=== PATIENT | male | born 1935 | race Caucasian/White ===

== ENCOUNTER 2021-06-07 22:09 | Inpatient (IN) | payer MEDICARE, SELFPAY ==
--- NOTE | ~2021-06-07 | CT_ITS ---
EXAMINATION: CT diagnostic chest wo con DATE: 06/12/2021 00:22 INDICATION: Shortness of breath. History of interstitial lung disease. TECHNIQUE: Computed tomography (CT) of the chest was performed without intravenous contrast. The dose -length product was 302.01 mGy-cm. Automated exposure control and iterative reconstruction technique were employed. COMPARISON: Chest x-ray dated 06/11/2021 FINDINGS: There is extensive patchy bilateral airspace disease with groundglass opacification which i s superimposed on chronic interstitial fibrosis with traction bronchiectasis. No endobronchial lesion s. No pneumothorax. There are multiple healed right rib fractures transfixed by side plates and screw s. Cardiomegaly. No significant pleural or pericardial effusion. 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 The upper abdomen is unremarkable. IMPRESSION: 1. Extensive patchy bilateral groundglass opacification, consistent with pneumonia. There is superimp osed chronic interstitial fibrosis characterized by honeycombing, peripheral interlobular septal thic kening and traction bronchiectasis. Reviewed, dictated and finalized at location A. IMPRESSION: 1. Extensive patchy bilateral groundglass opacification, consistent with pneumo reina. There is superimposed chronic interstitial fibrosis characterized by honey combing, peripheral interlobular septal thickening and traction bronchiectasis.
--- NOTE | ~2021-06-07 | XR_ITS ---
EXAMINATION: XR chest 1V portable EXAM DATE: 06/14/2021 16:31 INDICATION: Change In Breathing Low O2 Saturation TECHNIQUE: Portable AP frontal chest x-ray was obtained. Comparison is made to prior examination from 06/11/2021, 06/09. FINDINGS: Diffuse bilateral airspace disease Appearance could indicate COVID 19 pneumonia. Other acu te possibilities include influenza, pulmonary edema or hemorrhage. Some chronic processes that can brenner ve this appearance include cryptogenic organizing pneumonia, desquamative interstitial pneumonia, non specific interstitial pneumonia, drug toxicity, connective tissue disease. Please clinically correlat e and test as appropriate. No pneumothorax or pleural effusion. Mild cardiomegaly. There is aortic ar teriosclerosis. There are bony degenerative changes. Right rib fusion plates. IMPRESSION: Diffuse airspace disease unchanged. Could be COVID pneumonia but other considerations abo ve. Reviewed, dictated and finalized at location G. IMPRESSION: Diffuse airspace disease unchanged. Could be COVID pneumonia but ot her considerations above.
--- NOTE | ~2021-06-07 | XR_ITS ---
EXAMINATION: XR chest 1V portable EXAM DATE: 06/15/2021 17:59 INDICATION: sob, HX COPD, HX CHF, HX PE . TECHNIQUE: Portable AP frontal chest x-ray was obtained. Comparison is made to prior examination from 06/14/2021. FINDINGS: Diffuse bilateral airspace disease unchanged. Appearance could indicate COVID 19 pneumonia. Other acute possibilities include influenza, pulmonary edema or hemorrhage. Some chronic processes t hat can have this appearance include cryptogenic organizing pneumonia, desquamative interstitial pneu monia, nonspecific interstitial pneumonia, drug toxicity, connective tissue disease. Please clinicall y correlate and test as appropriate. No pneumothorax or pleural effusion. Mild cardiomegaly. There is aortic arteriosclerosis. There are bony degenerative changes. Right rib fusion plates. IMPRESSION: Diffuse airspace disease unchanged. Reviewed, dictated and finalized at location G.
--- NOTE | ~2021-06-07 | XR_ITS ---
EXAMINATION: XR chest 1V portable DATE: 06/17/2021 05:22 INDICATION: Chronic lung disease TECHNIQUE: frontal view of the chest was obtained. COMPARISON: Chest radiograph dated 06/09/2021 FINDINGS: Diffuse interstitial and airspace opacities throughout both lungs with some progression in the upper lung zones compared with earlier study dated 06/09/2021. No pleural effusion or pneumothorax. Cardiome jordon. Atherosclerotic aorta. Severe right glenohumeral osteoarthritis. Multiple old right rib fractur es 3 with plain screw fixations. IMPRESSION: 1. Some progression in the upper lung zones of diffuse bilateral lung disease likely combination of c hronic interstitial lung disease with superimposed more acute pulmonary edema and/or pneumonia. 2. Cardiomegaly. Reviewed, dictated and finalized at location A. IMPRESSION: 1. Some progression in the upper lung zones of diffuse bilateral lung disease l ikely combination of chronic interstitial lung disease with superimposed more a cute pulmonary edema and/or pneumonia. 2. Cardiomegaly.
--- NOTE | ~2021-06-07 | XR_ITS ---
XR chest 1V portable 06/09/2021 08:50 Indication: Shortness of breath Procedure: AP portable chest Comparison: No prior studies for comparison. Findings: Cardiomegaly. Diffuse bilateral airspace disease. There are multiple side plates and screws transfixing multiple ribs on the right. There is atherosclerosis and and ectasia of the thoracic aor ta. Impression: 1: Diffuse bilateral airspace disease may represent edema or pneumonia. 2: Cardiomegaly. Reviewed, dictated and finalized at location A. Impression: 1: Diffuse bilateral airspace disease may represent edema or pneumonia. 2: Cardiomegaly.
--- NOTE | ~2021-06-07 | XR_ITS ---
XR chest 1V portable 06/11/2021 12:35 Indication: Shortness of breath Procedure: AP portable chest Comparison: 06/09/2021 Findings: Diffuse bilateral airspace disease. Significant interval change. Stable cardiomediastinal s ilhouette. Stable surgical changes of the right ribs. No acute osseous abnormality. Impression: 1: Stable diffuse bilateral airspace disease which may represent edema or pneumonia. Reviewed, dictated and finalized at location A. Impression: 1: Stable diffuse bilateral airspace disease which may represent edema or pneum onia.
--- NOTE | ~2021-06-07 | CT_ITS ---
EXAMINATION: CTA chest PE protocol DATE: 06/18/2021 08:17 INDICATION: Shortness of breath. TECHNIQUE: Computed tomography angiography (CTA) of the chest was performed with 100 mL Omnipaque-350 intravenous contrast timed to evaluate the pulmonary arteries. Coronal maximum intensity projection 3D-reconstructions were created by the technologist. Automated exposure control and iterative reconst ruction technique were employed. The dose-length product was 819.98 mGy-cm. COMPARISON: Chest CT 06/12/2021, 10/31/2019 FINDINGS: The lung volumes are small. There are airspace and groundglass opacities and septal thicken ing throughout the lungs. Much of the peripheral septal thickening is chronic. There is peripheral ho neycombing in all lobes. There is bronchiectasis in the lungs, worst in right middle lobe. No pleural effusion. Tracheomegaly is noted. Cardiomegaly is noted. There are coronary artery calcifications. N o pericardial effusion. The central pulmonary arteries are enlarged, consistent with pulmonary arteri al hypertension. There is no pulmonary embolus. There is an old healed fracture of right scapula. The re are multiple old right rib fractures, some with [id number] fixation. There are old healed lef t rib fractures. There are multiple chronic vertebral body fractures. There is moderate thoracic spon dylosis. IMPRESSION: 1. No pulmonary embolus. 2. Diffuse lung disease with worsening from 06/12/2021, consistent with pulmonary edema versus pneumon ia superimposed on chronic interstitial lung disease in a pattern of usual interstitial pneumonia (UI P). 3. Cardiomegaly. Reviewed, dictated and finalized at location A. IMPRESSION: 1. No pulmonary embolus. 2. Diffuse lung disease with worsening from 06/12/2021, consistent with pulmonar y edema versus pneumonia superimposed on chronic interstitial lung disease in a pattern of usual interstitial pneumonia (UIP). 3. Cardiomegaly.
--- NOTE | ~2021-06-07 | US_ITS ---
EXAMINATION:US venous doppler LE BI INDICATION:Leg edema TECHNIQUE: Multiple grayscale, color flow and Doppler images of the right and left lower extremity de ep venous systems were obtained and reviewed. COMPARISON:No prior studies for comparison. FINDINGS: The common femoral, superficial femoral and popliteal veins demonstrate normal respiratory variation, augmentation and compressibility. Color flow is also seen within the posterior tibial, pe roneal, greater saphenous and profunda veins. IMPRESSION: 1: No lower extremity deep venous thrombosis. Reviewed, dictated and finalized at location A.
[2021-06-07 20:30] VITALS: BP 124/90; PULSE 96; RESP 20; TEMP 36.3; O2SAT 100
[2021-06-07 20:42] VITALS: PULSE 106
[2021-06-07 20:45] VITALS: O2SAT 100
--- NOTE | 2021-06-07 20:54 | PC.NURSE ---
This patient, Win Bonds, was admitted to IMU Room 203- at 2034. Patient/family oriented to hospital policies and general routines including ID bracelet, bed and alarms, visiting hours, pain management, procedures, bathroom and other care routines, personal items, smoking policy, room service/diet, and visiting hours. Information on how to activate the Rapid Response Team has been discussed. Patient/Family are encouraged to report perceived risks to care and to ask questions if they do not understand what they are told or what they should do.
[2021-06-07 20:57] VITALS: BMI 26.9
[2021-06-07 20:59] VITALS: BMI 26.9
--- NOTE | 2021-06-07 22:15 | PM.IMHP ---
H&P: HPI History of Present Illness Date/Time: 06/07/21 22:00 Chief Complaint: Acute on chronic respiratory failure and pulmonary embolism. Narrative: This is a very pleasant 86-year-old male with atrial fibrillation, chronic interstitial lung disease, obstructive sleep apnea, chronic respiratory failure on 2 L nasal cannula, and hypertension who is being directly admitted to the IMU from [facility] for further treatment and evaluation of acute on chronic respiratory failure and pulmonary embolism. He was usual state of health when he went to bed last night and around 02:30 he got up to use the restroom at which time he felt lightheaded/dizzy and more short of breath than usual. His symptoms continued and after speaking with his daughter he thought it was best to go to the hospital for evaluation. On arrival to the ER his SpO2 was 60% on room air and he was placed on 6 L nasal cannula with improvement. According to the patient he was given a nebulizer treatment which did seem to help somewhat. CT of the chest showed a small filling defect in the right lower lobe likely representing pulmonary embolism and perhaps superimposed edema versus pneumonia on chronic interstitial lung disease and he was subsequently admitted to their medical floor for diuresis and treatment of pulmonary embolism. He was weaned to 4 L nasal cannula however later in the afternoon he had increasing oxygen requirements associated with soft blood pressures (90s over 60s) and rapid atrial fibrillation and transfer was initiated to our facility for higher level of care. Vital signs on arrival to [facility]: Temperature 97.4?, blood pressure 124/90, pulse 96 (atrial fibrillation) and an SpO2 of 100% on 6 L nasal cannula. He is resting comfortably at the time my evaluation but he admits that he is tired. With further questioning he has no history of venous thromboembolism. He is on anticoagulation for atrial fibrillation however he only takes Eliquis 5 mg daily for unclear reasons. He has intermittent lower extremity edema that seems to improve overnight and he has not noticed any significant weight gain. He has an intermittent, chronic cough which is rarely productive of light yellow but occasionally darker sputum and this is also unchanged. Several weeks ago he was having pain in his right mid to lower back but that has improved. He has not had any chest pain or pleuritic pain. Appetite has been good and he denies nausea and vomiting. He has not had any sick contacts. No syncope. Review of Systems Review of Systems: Twelve systems were reviewed. He denies sick contacts. No fever, chills, or sweats. No headache. No sinus congestion, otalgia, odynophagia, or significant rhinorrhea. He denies orthopnea and PND. He is compliant with his CPAP at nighttime. No nausea, vomiting, or diarrhea. No dysuria. Except as documented, all other systems were reviewed and are negative. [facility] Past Medical History Medical History (Updated 06/07/21 @ 23:13 by Tami Perdomo PA-C) Arthritis Atrial fibrillation Chronic anticoagulation Chronic interstitial lung disease Chronic respiratory failure with hypoxia, on home oxygen therapy Congestive heart failure Flail chest (2008) From trauma obtained in a tractor accident. Hypertension Melanoma of face Obstructive sleep apnea Posttraumatic stress disorder Surgical History Surgical History (Updated 06/07/21 @ 23:12 by Tami Perdomo PA-C) History of appendectomy History of bilateral cataract extraction History of cardiac catheterization History of cholecystectomy History of melanoma excision Left side of face. History of thoracic surgery Flail chest due to fractured right anterior ribs obtained in a tractor accident. Family History Family History Father Kidney malignancy Mother Dementia Social History Social History (Updated 06/07/21 @ 23:12 by Tami Newman
[2021-06-07 22:38] LABS: INR 1.2; Prothrombin Time 14.6 Seconds (11.1-14.7)
[2021-06-07 22:39] LABS: Partial Thromboplastin Time 34.4 SECONDS (22.3-36.8)
[2021-06-07 23:11] LABS: Alanine Aminotransferase 18 U/L (4-50); Albumin Level 3.7 g/dL (3.5-5.1); Alkaline Phosphatase 72 U/L (38-126); Anion Gap 5 mmol/L (8-16); Aspartate Amino Transferase 27 U/L (17-59); Bilirubin,Total 0.5 mg/dL (0.2-1.3); Blood Urea Nitrogen 21 mg/dL (9-20); Calcium 8.4 mg/dL (8.4-10.2); Carbon Dioxide 34 mmol/L (22-30); Chloride 99 mmol/L (98-107); Estimated CRCL calculation 49 ml/min; Estimated Glomerular Filt Rate > 60; Glucose 111 mg/dL (65-110); Magnesium 2.2 mg/dL (1.6-2.3); NT Pro B Type Natriuretic Pept 2000 pg/mL (5-100); Potassium 3.9 mmol/L (3.4-5.0); Sodium 138 mmol/L (137-145); Troponin I < 0.012 ng/mL (0.000-0.034)
[2021-06-07] MEDS: APIXABAN 5 MG TABLET 10 MG PO (23:18)
[2021-06-07 23:39] VITALS: BP 124/83; PULSE 105; RESP 20; TEMP 36.6; O2SAT 90
[2021-06-07 23:45] VITALS: PULSE 109; O2SAT 92
[2021-06-08] VITALS (22 sets, daily range): BP systolic 97–134; BP diastolic 54–86; PULSE 82–121; RESP 14–35; TEMP 36.3–36.5; O2SAT 90–100
[2021-06-08 05:04] LABS: Hematocrit 38.9 % (42.0-52.0); Hemoglobin 12.5 g/dL (14.0-18.0); Mean Corpuscular HGB Conc 32.1 g/dl (32-36); Mean Corpuscular Volume 93.3 fl (80-100); Mean Platelet Volume 9.7 fl (7.4-10.4); Platelet Count Result 182 k/mm3 (150-375); Red Blood Count 4.17 M/mm3 (4.6-6.20); Red Cell Distribution Width 13.1 % (11.5-14.5); White Blood Count 8.4 K/mm3 (4.5-10.0)
[2021-06-08 05:20] LABS: Alanine Aminotransferase 18 U/L (4-50); Albumin Level 3.7 g/dL (3.5-5.1); Alkaline Phosphatase 83 U/L (38-126); Anion Gap 5 mmol/L (8-16); Aspartate Amino Transferase 25 U/L (17-59); Bilirubin,Total 0.5 mg/dL (0.2-1.3); Blood Urea Nitrogen 20 mg/dL (9-20); Calcium 8.3 mg/dL (8.4-10.2); Carbon Dioxide 32 mmol/L (22-30); Chloride 101 mmol/L (98-107); Estimated CRCL calculation 54 ml/min; Estimated Glomerular Filt Rate > 60; Glucose 125 mg/dL (65-110); Magnesium 2.2 mg/dL (1.6-2.3); Potassium 3.9 mmol/L (3.4-5.0); Sodium 138 mmol/L (137-145)
[2021-06-08] MEDS: lisinopriL 10 MG TABLET PO (08:03)
[2021-06-08] MEDS: APIXABAN 5 MG TABLET 10 MG PO ×2 (08:03→21:16)
[2021-06-08] MEDS: FUROSEMIDE 20 MG TABLET 60 MG PO (08:03)
[2021-06-08] MEDS: amLODIPine BESYLATE 5 MG TABLET 10 MG PO (08:03)
[2021-06-08] MEDS: PANTOPRAZOLE 40 MG TABLET PO (08:03)
--- NOTE | 2021-06-08 11:36 | PM.IMPN ---
Progress Note: A&P Assessment and Plan (1) Acute and chronic respiratory failure with hypoxia: Code(s): J96.21 - Acute and chronic respiratory failure with hypoxia Status: Acute Assessment and Plan: The patient has acute on chronic respiratory failure, typically on 2 L nasal cannula. Chest CTA showed a small pulmonary embolism in the right lower lobe posterior segmental artery thus I doubt this is the only reason that he has increasing oxygen requirement. received 2 doses of Lasix at the outside facility and his blood pressures were soft earlier this evening thus we will hold on further IV diuretics and resume his oral Lasix in the morning. Nebulizers seemed to help perhaps a bit and thus I will order these p.r.n. if the patient feels he would benefit from them. Wean oxygen as tolerated. (2) Pulmonary embolism on right: Code(s): I26.99 - Other pulmonary embolism without acute cor pulmonale Status: Acute Assessment and Plan: The patient has been taking Eliquis 5 mg once daily for several years. He does well with that drug and is able to afford it thus we will continue with Eliquis. He will be started on 10 mg twice daily and after 7 days he can go back to taking 5 mg though he will need to make sure he takes that twice a day. 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 Nebulizers available as needed as detailed above. I do not feel there is any need for steroids or antibiotics at this time. (4) Obstructive sleep apnea: Code(s): G47.33 - Obstructive sleep apnea (adult) (pediatric) Status: Acute Assessment and Plan: Patient may use CPAP that he brought from home. (5) Congestive heart failure: Code(s): I50.9 - Heart failure, unspecified Status: Acute Assessment and Plan: Plan is as detailed above. Pending echocardiogram (6) Atrial fibrillation: Code(s): I48.91 - Unspecified atrial fibrillation Status: Acute Assessment and Plan: He is currently rate controlled and tells me that he is not chronically in AFib , not on a beta-kayleigh Consult Cardiology, appreciate assistance and recommendations (7) Chronic anticoagulation: Code(s): Z79.01 - group home (current) use of anticoagulants Status: Acute Assessment and Plan: Eliquis dosing has been changed as detailed above. (8) Hypertension: Code(s): I10 - Essential (primary) hypertension Status: Acute Assessment and Plan: Blood pressures were soft at the outside facility after diuresis but have improved. Antihypertensives will be reviewed and resumed as appropriate, with parameters. Subjective Date/time seen: 06/08/21 11:36 Patient is alert and oriented times of 5 L oxygen per nasal cannula satting 93%. Patient wears 2 L of oxygen per nasal cannula. Patient is on Eliquis 5 mg daily for his intermittent AFib however he was never started on a beta-kayleigh. Patient may not be compliant with medications. He was taking Eliquis and developed a pulmonary embolism. There may be a secondary cause. Patient was provided IV Lasix in the emergency department and on the floor. Plan to transition to oral Lasix. Consulted Cardiology for further evaluation of the patient's CHF and AFib. Echocardiogram pending. Patient would benefit from a PFT outpatient. Review of Systems Review of Systems: All systems reviewed & are unremarkable except as noted in HPI and below Exam Narrative: General: Mildly ill-appearing elderly gentleman. Weight: 85 kg. BMI: 26.9. HEENT: PERRL, EOMI. Sclerae anicteric. Oral mucosa moist. Neck: Supple. Mild jugular dina
--- NOTE | 2021-06-08 14:01 | PM.CNCAR ---
Assessment and Plan Assessment and plan (1) Atrial fibrillation: Code(s): I48.91 - Unspecified atrial fibrillation Status: Acute Assessment and Plan: Heart rate is a little fast. Will start metoprolol tartrate 12.5 mg p.o. b.i.d. and up titrate as needed. Will stop his amlodipine and use metoprolol for blood pressure control if need be. Will request records from Dr. Ho office. Agree with anticoagulation as needed for treatment of his pulmonary embolism. Eventually he will need a more proper dose of treatment for atrial fibrillation prophylaxis also which should be 5 mg p.o. b.i.d.. EKG now. PA and lateral chest x-ray tomorrow. 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 (3) Chronic respiratory failure with hypoxia, on home oxygen therapy: Code(s): J96.11 - Chronic respiratory failure with hypoxia; Z99.81 - Dependence on supplemental oxygen Status: Acute Assessment and Plan: Acute on chronic respiratory failure. Acute decompensation possibly from atrial fibrillation with rapid ventricular response versus pulmonary embolism. (4) Obstructive sleep apnea: Code(s): G47.33 - Obstructive sleep apnea (adult) (pediatric) Status: Acute Assessment and Plan: On CPAP (5) Pulmonary embolism on right: Code(s): I26.99 - Other pulmonary embolism without acute cor pulmonale Status: Acute Assessment and Plan: Small (6) Chronic interstitial lung disease: Code(s): J84.9 - Interstitial pulmonary disease, unspecified Status: Acute (7) Acute and chronic respiratory failure with hypoxia: Code(s): J96.21 - Acute and chronic respiratory failure with hypoxia Status: Acute Assessment and Plan: As above Continue oxygen, diuresis and nebulizers. Continue also treatment for his pulmonary embolism. (8) Hypertension: Code(s): I10 - Essential (primary) hypertension Status: Acute Assessment and Plan: At goal in advancing a little low at this point. Will hold amlodipine. History of Present Illness History of Present Illness Consult date/time: 06/08/21 14:01 Requesting physician: Hien Reyes APRN Consult reason: atrial fibrillation Reason For Visit: Pulmonary Embolism Narrative: Reason for consultation: Atrial fibrillation Requesting provider Hien Reyes Date of service 06/08/2021 History: Patient is an 86-year-old male who has see Dr. Morales with [facility] in the past. Reportedly has history of atrial fibrillation, chronic interstitial lung disease, [place], chronic respiratory failure on chronic 2 L of oxygen, hypertension. He woke up and went to the bathroom 2 nights ago and acutely felt lightheaded, dizzy and very short of breath. He went to the hospital and was found to be satting in the 60s on room air. He was put on [address] scan showed a small filling defect consistent with pulmonary embolism. There is also some concern about edema versus pneumonia as well as lung disease. He did have some diuresis. Unfortunately had further oxygen requirement and atrial fibrillation rapid ventricular response. He decompensated to the point that he needed transfer. He could not get him a bed in [place] soon enough and so he was transferred here for further workup evaluation and treatment. He has been started on PE dose Eliquis. He has been in atrial fibrillation when generally in rapid ventricular response since admission but denies any chest pain. Shortness of breath has been stable. No syncope, presyncope. He does have some lower extremity edema which did improve with diuresis over the past couple of days. He does feel palpitations at times especially when he is more active. Review
--- NOTE | 2021-06-08 14:11 | ECG_ITS ---
Measurements Intervals [place] Rate: 103 P: AL: 0 QRS: -29 QRSD: 111 T: -24 QT: 356 QTc: 467 Interpretive Statements ATRIAL FIBRILLATION WITH RAPID VENTRICULAR RESPONSE BORDERLINE LEFT AXIS DEVIATION [QRS AXIS < -20] INCOMPLETE RIGHT BUNDLE BRANCH BLOCK [90+ ms QRS DURATION, TERMINAL R IN V1/V2, 40+ ms S IN I/aVL/V4/V5/V6] POSSIBLE LEFT VENTRICULAR HYPERTROPHY [VOLTAGE CRITERIA PLUS LAE OR QRS WIDENING] ST DEVIATION AND MODERATE T-WAVE ABNORMALITY, CONSIDER ANTERIOR ISCHEMIA [-0.1+ mV T WAVE IN V3/V4] ABNORMAL ECG NO PREVIOUS ECG AVAILABLE FOR COMPARISON Electronically Signed On 06-08-2021 15:25:52 CDT by Kevan Meza M.D.
[2021-06-08] MEDS: METOPROLOL TARTRATE 12.5 MG TABLET PO ×2 (14:58→21:16)
--- NOTE | 2021-06-08 22:57 | ECHO_ITS ---
Patient Info Name: Win Bonds Age: 86 years : 1935 Gender: Male Ht: 70 in Wt: 187 lbs BSA: 2.06 m2 HR: 110 bpm BP: 119 / 96 mmHg Heart Rhythm: Atrial Fibrillation Technical Quality: Good Exam Date: 06/08/2021 8:43 AM Exam Location: [facility] Pulmonary Exam Room: [facility] Patient Status: Inpatient Admit Date: 06/07/2021 Staff Ordering Physician: Tami Perdomo PA-C Steel Rigger: aLcey Castro RDCS Attending Provider: Kareen Bella MD Referring Physician: Conor SEARS; Exam Type: CA echo doppler w bubble study Study Info Indications - afib pulm htn pe Complete two-dimensional, color flow and Doppler transthoracic echocardiogram is performed with agitated saline. Contrast/Agitated Saline Contrast/Ag. Saline: Agitated Saline Amount: 20.00 ml IV Access Condition: patent with no signs of infiltration Summary 1. Left ventricular chamber dimension is normal. 2. Left ventricular systolic function is normal, estimated at 55-60%. 3. There is mildly increased left ventricular wall thickness. 4. The left ventricular diastolic function is indeterminate. 5. Right ventricular chamber dimension is moderately enlarged. 6. Right ventricular systolic function is reduced. 7. Left atrial chamber dimension is moderately enlarged. 8. Right atrial chamber dimension is severely enlarged. 9. Intact interatrial septum visualized by color flow and agitated saline imaging. 10. There is mild aortic valve regurgitation. 11. There is moderate mitral valve regurgitation. 12. There is mild tricuspid valve regurgitation. 13. Mild pulmonary hypertension, estimated pulmonary arterial systolic pressure is 37 mmHg. 14. There is mild pulmonic regurgitation. 15. Pulmonary artery enlargement is seen. Left Ventricle Left ventricular chamber dimension is normal. Left ventricular systolic function is normal, estimated at 55-60%. There is mildly increased left ventricular wall thickness. The left ventricular diastolic function is indeterminate. Right Ventricle Right ventricular chamber dimension is moderately enlarged. Right ventricular systolic function is reduced. Left Atria Left atrial chamber dimension is moderately enlarged. Right Atria Right atrial chamber dimension is severely enlarged. Atrial Septum Intact interatrial septum visualized by color flow and agitated saline imaging. Aortic Valve The aortic valve is trileaflet. There is mild aortic valve sclerosis. There is no aortic valve stenosis. There is mild aortic valve regurgitation. Pulmonic Valve The pulmonic valve is normal. There is no pulmonic valve stenosis. There is mild pulmonic regurgitation. Mitral Valve The mitral valve has normal leaflets. There is no mitral valve stenosis. There is moderate mitral valve regurgitation. Tricuspid Valve The tricuspid valve leaflets are normal. There is no significant tricuspid valve stenosis. There is mild tricuspid valve regurgitation. Mild pulmonary hypertension, estimated pulmonary arterial systolic pressure is 37 mmHg. Pulmonary Arteries Pulmonary artery enlargement is seen. Pericardium/Pleural The pericardium appears normal. There is small pericardial effusion. Inferior Vena Cava Normal inferior vena cava with <50% collapse upon inspiration consistent with elevated right atrial pressure, 10 mmHg. Aorta The aortic root size at the sinus of Valsalva i
[2021-06-09] VITALS (21 sets, daily range): BP systolic 97–135; BP diastolic 60–95; PULSE 79–120; RESP 20–35; TEMP 36.1–36.8; O2SAT 91–98
[2021-06-09 08:18] LABS: Basophils Percent Auto 0.3 % (0.2-1.2); Eosinophils Absolute Auto 0.3 K/mm3 (0-0.3); Eosinophils Percent Auto 2.8 % (0-4.4); Hematocrit 38.8 % (42.0-52.0); Hemoglobin 12.4 g/dL (14.0-18.0); Immature Granulocyte Absolute 0.05 K/mm3 (0.00-0.031); Immature Granulocyte Percent A 0.5 % (0-0.5); Lymphocytes Absolute Auto 1.35 K/mm3 (0.9-3.2); Lymphocytes Percent Auto 14.6 % (18.3-44.2); Mean Corpuscular Hemoglobin 29.9 pg (26-34); Mean Corpuscular Volume 93.5 fl (80-100); Mean Platelet Volume 9.7 fl (7.4-10.4); Monocytes Absolute Auto 0.7 K/mm3 (0.1-0.6); Monocytes Percent Auto 7.6 % (2.6-8.5); Neutrophils Absolute Auto 6.9 K/mm3 (1.3-6.7); Neutrophils Percent Auto 74.2 % (45.5-73.1); Platelet Count Result 174 k/mm3 (150-375); Red Blood Count 4.15 M/mm3 (4.6-6.20); Red Cell Distribution Width 13.2 % (11.5-14.5); White Blood Count 9.2 K/mm3 (4.5-10.0)
[2021-06-09 08:29] LABS: Alanine Aminotransferase 15 U/L (4-50); Albumin Level 3.6 g/dL (3.5-5.1); Alkaline Phosphatase 70 U/L (38-126); Anion Gap 4 mmol/L (8-16); Aspartate Amino Transferase 23 U/L (17-59); Bilirubin,Total 0.9 mg/dL (0.2-1.3); Blood Urea Nitrogen 23 mg/dL (9-20); Calcium 8.2 mg/dL (8.4-10.2); Carbon Dioxide 33 mmol/L (22-30); Chloride 100 mmol/L (98-107); Estimated CRCL calculation 54 ml/min; Estimated Glomerular Filt Rate > 60; Glucose 98 mg/dL (65-110); Magnesium 2.1 mg/dL (1.6-2.3); Sodium 137 mmol/L (137-145)
[2021-06-09] MEDS: FUROSEMIDE 20 MG TABLET 60 MG PO (10:28)
[2021-06-09] MEDS: PANTOPRAZOLE 40 MG TABLET PO (10:29)
[2021-06-09] MEDS: METOPROLOL TARTRATE 12.5 MG TABLET PO ×2 (10:29→20:48)
[2021-06-09] MEDS: APIXABAN 5 MG TABLET 10 MG PO ×2 (10:29→20:48)
--- NOTE | 2021-06-09 11:27 | PM.PNCARD ---
Progress Note: A&P Assessment and Plan (1) Atrial fibrillation: Code(s): I48.91 - Unspecified atrial fibrillation Status: Acute Assessment and Plan: Heart rate is better controlled with low-dose metoprolol. Will continue. Still awaiting records from [facility]. Will request records from Dr. Ho office. Agree with anticoagulation as needed for treatment of his pulmonary embolism. Eventually he will need a more proper dose of treatment for atrial fibrillation prophylaxis also which should be 5 mg p.o. b.i.d.. 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 (3) Chronic respiratory failure with hypoxia, on home oxygen therapy: Code(s): J96.11 - Chronic respiratory failure with hypoxia; Z99.81 - Dependence on supplemental oxygen Status: Acute Assessment and Plan: Acute on chronic respiratory failure. Acute decompensation possibly from atrial fibrillation with rapid ventricular response versus pulmonary embolism. Will give him a dose of IV furosemide 40 mg IV x1 to see if this will help his oxygenation (4) Obstructive sleep apnea: Code(s): G47.33 - Obstructive sleep apnea (adult) (pediatric) Status: Acute Assessment and Plan: On CPAP (5) Pulmonary embolism on right: Code(s): I26.99 - Other pulmonary embolism without acute cor pulmonale Status: Acute Assessment and Plan: Small (6) Chronic interstitial lung disease: Code(s): J84.9 - Interstitial pulmonary disease, unspecified Status: Acute (7) Acute and chronic respiratory failure with hypoxia: Code(s): J96.21 - Acute and chronic respiratory failure with hypoxia Status: Acute Assessment and Plan: As above Continue oxygen, diuresis and nebulizers. Continue also treatment for his pulmonary embolism. (8) Hypertension: Code(s): I10 - Essential (primary) hypertension Status: Acute Assessment and Plan: Stable Subjective Date/time seen: 06/09/21 11:27 Interval history: 86-year-old admitted for worsening shortness of breath and pulmonary embolism. Date of service 06/09/2021: He feels a little bit better but not significantly. Still on high-flow oxygen. No chest pain. No edema Review of Systems Review of Systems: All systems reviewed & are unremarkable except as noted in HPI and below Constitutional: Constitutional: Denies fatigue, Denies headache(s) and Denies weakness Eyes: Eyes: Denies blurry vision ENT: Reports Normal hearing present, Denies headache(s) and Denies neck pain Cardiovascular: Cardiovascular: Denies chest pain, Reports pedal edema and Reports dyspnea Respiratory: Respiratory: Reports dyspnea Gastrointestinal: Gastrointestinal: Denies abdominal pain Genitourinary: Genitourinary: Denies dysuria Musculoskeletal: Musculoskeletal: Denies neck pain Integumentary/Breasts: Skin/Breast: Denies dry skin Neurologic: Reports Normal hearing present, Denies headache(s) and Denies weakness Psychiatric: Psychiatric: Denies anxiety Endocrine: Endocrine: Denies fatigue Hematologic/Lymphatic: Hematologic/Lymphatic: Denies easy bleeding Allergic/Immunologic: Allergic/Immunologic: Denies GI upset with certain foods Exam Narrative: Awake alert. Appears to be in no acute distress. Appears stated age Const: General: comfortable and no acute distress HENMT: General nose exam: Normal nares present Eyes: Sclera: sclerae normal Neck: Neck: supple and no JVD Chest: Other: No reproducible chest wall pain to palpation Resp: Auscultation: diminished lung sounds Cardio: Rate: tachycardic Rhythm: abnormal rhythm irregularly irregular GI: Auscultation: normal bowel sounds Skin: General skin exam: normal color Neuro: Cranial nerves: Yes Normal hearing prese
[2021-06-09] MEDS: FUROSEMIDE INJ 40 MG/4 ML VIAL IV PUSH (12:01)
--- NOTE | 2021-06-09 12:21 | PM.IMPN ---
Progress Note: A&P Assessment and Plan (1) Acute and chronic respiratory failure with hypoxia: Code(s): J96.21 - Acute and chronic respiratory failure with hypoxia Status: Acute Assessment and Plan: The patient has acute on chronic respiratory failure, typically on 2 L nasal cannula, currently on 8 L high-flow nasal cannula Chest CTA showed a small pulmonary embolism in the right lower lobe posterior segmental artery thus I doubt this is the only reason that he has increasing oxygen requirement. Wean oxygen as tolerated (2) Pulmonary embolism on right: Code(s): I26.99 - Other pulmonary embolism without acute cor pulmonale Status: Acute Assessment and Plan: The patient has been taking Eliquis 5 mg once daily for several years. He does well with that drug and is able to afford it thus we will continue with Eliquis. He will be started on 10 mg twice daily and after 7 days he can go back to taking 5 mg though he will need to make sure he takes that twice a day. 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 Nebulizers available as needed as detailed above. I do not feel there is any need for steroids or antibiotics at this time. (4) Obstructive sleep apnea: Code(s): G47.33 - Obstructive sleep apnea (adult) (pediatric) Status: Acute Assessment and Plan: Patient may use CPAP that he brought from home. (5) Congestive heart failure: Code(s): I50.9 - Heart failure, unspecified Status: Acute Assessment and Plan: Consult cardiology for further evaluation, appreciate assistance and recommendations echocardiogram reviewed: LVEF 55-60% with indeterminate diastolic function, right atrial chamber did dimension is severely enlarged and the left atrial chamber dimension is moderately enlarged. Systolic function is reduced. Patient also has elevated pulmonary pressures. Mild pulmonary hypertension Chest x-ray was reviewed. Suggestive of edema versus pneumonia. Due to the patient's lack of leukocytosis and fever, or worsened just pulmonary edema. 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 Patient was noncompliant with his Eliquis prior to admission. Patient was unknowingly taking another medication and not his blood thinner. (8) Hypertension: Code(s): I10 - Essential (primary) hypertension Status: Acute Assessment and Plan: Blood pressures were soft at the outside facility after diuresis but have improved. Antihypertensives will be reviewed and resumed as appropriate, with parameters. Stop amlodipine, continue lisinopril Subjective Date/time seen: 06/09/21 12:21 Patient is alert and oriented x4. Patient is able to answer his questions appropriately. During my evaluation this morning. The patient reported that he had stopped taking his Eliquis at home unknowingly. Medications were mixed up . His daughter found his Eliquis in another area. Therefore the patient has been noncomplian
[2021-06-10] VITALS (21 sets, daily range): BP systolic 92–125; BP diastolic 65–75; PULSE 82–111; RESP 15–32; TEMP 36.6–37.1; O2SAT 91–96
[2021-06-10 06:17] LABS: Basophils Percent Auto 0.3 % (0.2-1.2); Eosinophils Absolute Auto 0.3 K/mm3 (0-0.3); Eosinophils Percent Auto 3.2 % (0-4.4); Immature Granulocyte Absolute 0.04 K/mm3 (0.00-0.031); Immature Granulocyte Percent A 0.4 % (0-0.5); Lymphocytes Absolute Auto 1.47 K/mm3 (0.9-3.2); Mean Corpuscular HGB Conc 32.4 g/dl (32-36); Mean Corpuscular Hemoglobin 29.6 pg (26-34); Mean Corpuscular Volume 91.4 fl (80-100); Mean Platelet Volume 9.4 fl (7.4-10.4); Monocytes Absolute Auto 0.6 K/mm3 (0.1-0.6); Monocytes Percent Auto 6.8 % (2.6-8.5); Neutrophils Absolute Auto 6.7 K/mm3 (1.3-6.7); Neutrophils Percent Auto 73.3 % (45.5-73.1); Platelet Count Result 177 k/mm3 (150-375); Red Blood Count 4.05 M/mm3 (4.6-6.20); Red Cell Distribution Width 12.7 % (11.5-14.5); White Blood Count 9.2 K/mm3 (4.5-10.0)
[2021-06-10 06:27] LABS: Alanine Aminotransferase 17 U/L (4-50); Albumin Level 3.7 g/dL (3.5-5.1); Alkaline Phosphatase 69 U/L (38-126); Anion Gap 5 mmol/L (8-16); Aspartate Amino Transferase 26 U/L (17-59); Bilirubin,Total 1.2 mg/dL (0.2-1.3); Blood Urea Nitrogen 24 mg/dL (9-20); Calcium 8.1 mg/dL (8.4-10.2); Carbon Dioxide 32 mmol/L (22-30); Chloride 100 mmol/L (98-107); Estimated CRCL calculation 54 ml/min; Estimated Glomerular Filt Rate > 60; Glucose 115 mg/dL (65-110); Potassium 3.7 mmol/L (3.4-5.0); Sodium 137 mmol/L (137-145)
[2021-06-10] MEDS: PANTOPRAZOLE 40 MG TABLET PO (08:43)
[2021-06-10] MEDS: APIXABAN 5 MG TABLET 10 MG PO ×2 (08:43→20:40)
[2021-06-10] MEDS: FUROSEMIDE 20 MG TABLET 60 MG PO (08:46)
[2021-06-10] MEDS: METOPROLOL TARTRATE 12.5 MG TABLET PO ×2 (08:46→20:40)
[2021-06-10] MEDS: lisinopriL 10 MG TABLET PO (08:51)
--- NOTE | 2021-06-10 13:59 | PM.PNCARD ---
Progress Note: A&P Assessment and Plan (1) Atrial fibrillation: Code(s): I48.91 - Unspecified atrial fibrillation Status: Acute Assessment and Plan: Heart rate is better controlled with low-dose metoprolol. Continue metoprolol 12.5 mg q.12 hours Agree with anticoagulation as needed for treatment of his pulmonary embolism. Eventually he will need a more proper dose of treatment for atrial fibrillation prophylaxis also which should be 5 mg p.o. b.i.d.. Records have been requested from [facility] (2) Chronic anticoagulation: Code(s): Z79.01 - FPC (current) use of anticoagulants Status: Acute Assessment and Plan: Anticoagulation with Eliquis for treatment of PE at this point. (3) Chronic respiratory failure with hypoxia, on home oxygen therapy: Code(s): J96.11 - Chronic respiratory failure with hypoxia; Z99.81 - Dependence on supplemental oxygen Status: Acute Assessment and Plan: Acute on chronic respiratory failure. Acute decompensation possibly from atrial fibrillation with rapid ventricular response versus pulmonary embolism though from a respiratory standpoint he has not improved with heart rate control. Pulmonary edema vs. pneumonia on CXR yesterday. Will increase diuretic dose to see if this helps improve his respiratory status. (4) Obstructive sleep apnea: Code(s): G47.33 - Obstructive sleep apnea (adult) (pediatric) Status: Acute Assessment and Plan: On CPAP (5) Pulmonary embolism on right: Code(s): I26.99 - Other pulmonary embolism without acute cor pulmonale Status: Acute Assessment and Plan: Small. On apixaban for a/c. (6) Chronic interstitial lung disease: Code(s): J84.9 - Interstitial pulmonary disease, unspecified Status: Acute (7) Acute and chronic respiratory failure with hypoxia: Code(s): J96.21 - Acute and chronic respiratory failure with hypoxia Status: Acute Assessment and Plan: As above Continue oxygen, diuresis and nebulizers. Continue also treatment for his pulmonary embolism. (8) Hypertension: Code(s): I10 - Essential (primary) hypertension Status: Acute Assessment and Plan: Stable Subjective Date/time seen: 06/10/21 13:59 Interval history: 86-year-old admitted for worsening shortness of breath and pulmonary embolism. Date of service 06/09/2021: He feels a little bit better but not significantly. Still on high-flow oxygen. No chest pain. No edema Date of service 06/10/2021: Feeling about the same. He is now on BiPAP. Denies any chest pain, palpitations. Review of Systems Review of Systems: All systems reviewed & are unremarkable except as noted in HPI and below Constitutional: Constitutional: Denies fatigue, Denies headache(s) and Denies weakness Eyes: Eyes: Denies blurry vision ENT: Reports Normal hearing present, Denies headache(s) and Denies neck pain Cardiovascular: Cardiovascular: Denies chest pain, Reports pedal edema and Reports dyspnea Respiratory: Respiratory: Reports dyspnea Gastrointestinal: Gastrointestinal: Denies abdominal pain Genitourinary: Genitourinary: Denies dysuria Musculoskeletal: Musculoskeletal: Denies neck pain Integumentary/Breasts: Skin/Breast: Denies dry skin Neurologic: Reports Normal hearing present, Denies headache(s) and Denies weakness Psychiatric: Psychiatric: Denies anxiety Endocrine: Endocrine: Denies fatigue Hematologic/Lymphatic: Hematologic/Lymphatic: Denies easy bleeding Allergic/Immunologic: Allergic/Immunologic: Denies GI upset with certain foods Exam Narrative: Sleeping but awakens to voice. Appears to be in no acute distress. Appears stated age Const: General: comfortable and no acute distress HENMT: General nose exam: Normal nares present Eyes: Sclera: sclerae normal Neck: Neck: supple and no JVD Chest: Other: No reproducible chest w
--- NOTE | 2021-06-10 15:43 | PM.IMPN ---
Progress Note: A&P Assessment and Plan (1) Acute and chronic respiratory failure with hypoxia: Code(s): J96.21 - Acute and chronic respiratory failure with hypoxia Status: Acute Assessment and Plan: The patient has acute on chronic respiratory failure, typically on 2 L nasal cannula, currently on 8 L high-flow nasal cannula Chest CTA showed a small pulmonary embolism in the right lower lobe posterior segmental artery thus I doubt this is the only reason that he has increasing oxygen requirement. Wean oxygen as tolerated (2) Pulmonary embolism on right: Code(s): I26.99 - Other pulmonary embolism without acute cor pulmonale Status: Acute Assessment and Plan: The patient has been taking Eliquis 5 mg once daily for several years. He does well with that drug and is able to afford it thus we will continue with Eliquis. He will be started on 10 mg twice daily and after 7 days he can go back to taking 5 mg though he will need to make sure he takes that twice a day. 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 Nebulizers available as needed as detailed above. I do not feel there is any need for steroids or antibiotics at this time. (4) Obstructive sleep apnea: Code(s): G47.33 - Obstructive sleep apnea (adult) (pediatric) Status: Acute Assessment and Plan: Patient may use CPAP that he brought from home. (5) Congestive heart failure: Code(s): I50.9 - Heart failure, unspecified Status: Acute Assessment and Plan: Consult cardiology for further evaluation, appreciate assistance and recommendations echocardiogram reviewed: LVEF 55-60% with indeterminate diastolic function, right atrial chamber did dimension is severely enlarged and the left atrial chamber dimension is moderately enlarged. Systolic function is reduced. Patient also has elevated pulmonary pressures. Mild pulmonary hypertension Chest x-ray was reviewed. Suggestive of edema versus pneumonia. Due to the patient's lack of leukocytosis and fever, or worsened just pulmonary edema. 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 Patient was noncompliant with his Eliquis prior to admission. Patient was unknowingly taking another medication and not his blood thinner. (8) Hypertension: Code(s): I10 - Essential (primary) hypertension Status: Acute Assessment and Plan: Blood pressures were soft at the outside facility after diuresis but have improved. Antihypertensives will be reviewed and resumed as appropriate, with parameters. Stop amlodipine, continue lisinopril 06/10/2021 interval history: patient with atrial fibrillation the rate is controlled with metoprolol 12.5 mg b.i.d. and anticoagulated with Eliquis 5 mg b.i.d. as patient was taking once a day prior to coming to emergency depart and developed pulmonary emboli, patient with shortness of breath multifactorial secondary to congestive heart failure patient has a preserved LV fun
[2021-06-11] VITALS (19 sets, daily range): BP systolic 105–136; BP diastolic 65–89; PULSE 86–124; RESP 16–30; TEMP 36.4–36.9; O2SAT 91–98
[2021-06-11] MEDS: ACETAMINOPHEN 325 MG TABLET 650 MG PO (03:33)
[2021-06-11] MEDS: FUROSEMIDE INJ 40 MG/4 ML VIAL IV PUSH ×2 (09:14→17:41)
[2021-06-11] MEDS: lisinopriL 10 MG TABLET PO (09:15)
[2021-06-11] MEDS: PANTOPRAZOLE 40 MG TABLET PO (09:15)
[2021-06-11] MEDS: APIXABAN 5 MG TABLET 10 MG PO ×2 (09:15→20:01)
[2021-06-11] MEDS: METOPROLOL TARTRATE 12.5 MG TABLET PO ×2 (09:15→20:01)
--- NOTE | 2021-06-11 12:16 | PM.IMPN ---
Progress Note: A&P Assessment and Plan (1) Acute and chronic respiratory failure with hypoxia: Code(s): J96.21 - Acute and chronic respiratory failure with hypoxia Status: Acute Assessment and Plan: The patient has acute on chronic respiratory failure, typically on 2 L nasal cannula, currently on 8 L high-flow nasal cannula Chest CTA showed a small pulmonary embolism in the right lower lobe posterior segmental artery associated with pulmonary continue anticoagulation continue diuresis (2) Pulmonary embolism on right: Code(s): I26.99 - Other pulmonary embolism without acute cor pulmonale Status: Acute Assessment and Plan: The patient has been taking Eliquis 5 mg once daily for several years. He does well with that drug and is able to afford it thus we will continue with Eliquis. He will be started on 10 mg twice daily and after 7 days he can go back to taking 5 mg though he will need to make sure he takes that twice a day. 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 Nebulizers available as needed as detailed above. Continue to monitor follow-up with pulmonology as outpatient. (4) Obstructive sleep apnea: Code(s): G47.33 - Obstructive sleep apnea (adult) (pediatric) Status: Acute Assessment and Plan: Patient may use CPAP that he brought from home. (5) Congestive heart failure: Code(s): I50.9 - Heart failure, unspecified Status: Acute Assessment and Plan: Consult cardiology for further evaluation, appreciate assistance and recommendations echocardiogram reviewed: LVEF 55-60% with indeterminate diastolic function, right atrial chamber did dimension is severely enlarged and the left atrial chamber dimension is moderately enlarged. Systolic function is reduced. Patient also has elevated pulmonary pressures. 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 Patient was noncompliant with his Eliquis prior to admission. Patient was unknowingly taking another medication and not his blood thinner. (8) Hypertension: Code(s): I10 - Essential (primary) hypertension Status: Acute Assessment and Plan: Continue current treatment monitor Subjective Date/time seen: 06/11/21 12:16 Interval history: Patient seen and examined Patient was admitted to the hospital with shortness of breath was found to have pulmonary edema and pulmonary embolism Patient feels weak still short of breath requiring oxygen Patient denies fever headache chest pain I am seeing the patient for shortness of breath Exam Narrative: Alert Chest positive bilateral crackles Abdomen nontender nondistended CVS S1 + S2 Lower extremity positive edema Objective Data Vital Signs Vital Signs: Vital Signs - 24 hr 06/10/21 12:30 06/10/21 14:00 06/10/21 16:00 Temperature 97.8 F Pulse Rate 95 101 H Respiratory Rate 24 H Blood Pressure 115/71 Pulse Oximetry 92 94 06/10/21 18:00 06/10/21 20:00 06/10/21 20:40 Temperature 98.0 F Pulse Rate 86 99 96 Respiratory
[2021-06-11 12:42] LABS: Basophils Percent Auto 0.3 % (0.2-1.2); Eosinophils Absolute Auto 0.3 K/mm3 (0-0.3); Eosinophils Percent Auto 3.8 % (0-4.4); Hematocrit 40.6 % (42.0-52.0); Hemoglobin 12.7 g/dL (14.0-18.0); Immature Granulocyte Absolute 0.02 K/mm3 (0.00-0.031); Immature Granulocyte Percent A 0.3 % (0-0.5); Lymphocytes Absolute Auto 1.21 K/mm3 (0.9-3.2); Lymphocytes Percent Auto 17.8 % (18.3-44.2); Mean Corpuscular HGB Conc 31.3 g/dl (32-36); Mean Corpuscular Hemoglobin 29.5 pg (26-34); Mean Corpuscular Volume 94.2 fl (80-100); Mean Platelet Volume 9.5 fl (7.4-10.4); Monocytes Absolute Auto 0.5 K/mm3 (0.1-0.6); Monocytes Percent Auto 7.9 % (2.6-8.5); Neutrophils Absolute Auto 4.8 K/mm3 (1.3-6.7); Neutrophils Percent Auto 69.9 % (45.5-73.1); Platelet Count Result 185 k/mm3 (150-375); Red Blood Count 4.31 M/mm3 (4.6-6.20); Red Cell Distribution Width 12.9 % (11.5-14.5); White Blood Count 6.8 K/mm3 (4.5-10.0)
[2021-06-11 13:10] LABS: Alanine Aminotransferase 22 U/L (4-50); Albumin Level 3.9 g/dL (3.5-5.1); Alkaline Phosphatase 89 U/L (38-126); Anion Gap 5 mmol/L (8-16); Aspartate Amino Transferase 36 U/L (17-59); Bilirubin,Total 0.8 mg/dL (0.2-1.3); Blood Urea Nitrogen 27 mg/dL (9-20); Calcium 8.4 mg/dL (8.4-10.2); Carbon Dioxide 38 mmol/L (22-30); Chloride 98 mmol/L (98-107); Estimated CRCL calculation 54 ml/min; Estimated Glomerular Filt Rate > 60; Glucose 124 mg/dL (65-110); Sodium 141 mmol/L (137-145)
--- NOTE | 2021-06-11 13:37 | PM.PNCARD ---
Progress Note: A&P Assessment and Plan (1) Atrial fibrillation: Code(s): I48.91 - Unspecified atrial fibrillation Status: Acute Assessment and Plan: Heart rate is better controlled with low-dose metoprolol. Continue metoprolol 12.5 mg q.12 hours Agree with anticoagulation as needed for treatment of his pulmonary embolism. Eventually he will need a more proper dose of treatment for atrial fibrillation prophylaxis also which should be 5 mg p.o. b.i.d.. Records have been requested from [facility] (2) Chronic anticoagulation: Code(s): Z79.01 - intermediate (current) use of anticoagulants Status: Acute Assessment and Plan: Anticoagulation with Eliquis for treatment of PE at this point. (3) Chronic respiratory failure with hypoxia, on home oxygen therapy: Code(s): J96.11 - Chronic respiratory failure with hypoxia; Z99.81 - Dependence on supplemental oxygen Status: Acute Assessment and Plan: Acute on chronic respiratory failure. Acute decompensation possibly from atrial fibrillation with rapid ventricular response versus pulmonary embolism though from a respiratory standpoint he has not improved with heart rate control. Pulmonary exam worse today, cxr continues to demonstrate pulmonary edema vs pneumonia, though no other clinical findings to support pneumonia. Will give extra 20mg IV furosemide now. Increase to furosemide 40mg b.i.d daily. (4) Obstructive sleep apnea: Code(s): G47.33 - Obstructive sleep apnea (adult) (pediatric) Status: Acute Assessment and Plan: On CPAP (5) Pulmonary embolism on right: Code(s): I26.99 - Other pulmonary embolism without acute cor pulmonale Status: Acute Assessment and Plan: Small. On apixaban for a/c. (6) Chronic interstitial lung disease: Code(s): J84.9 - Interstitial pulmonary disease, unspecified Status: Acute (7) Acute and chronic respiratory failure with hypoxia: Code(s): J96.21 - Acute and chronic respiratory failure with hypoxia Status: Acute Assessment and Plan: As above Continue oxygen, diuresis and nebulizers. Continue also treatment for his pulmonary embolism. (8) Hypertension: Code(s): I10 - Essential (primary) hypertension Status: Acute Assessment and Plan: Stable Subjective Date/time seen: 06/11/21 13:37 Interval history: 86-year-old admitted for worsening shortness of breath and pulmonary embolism. Date of service 06/09/2021: He feels a little bit better but not significantly. Still on high-flow oxygen. No chest pain. No edema Date of service 06/10/2021: Feeling about the same. He is now on BiPAP. Denies any chest pain, palpitations. Date of service 06/11/2021: Back on high flow O2. States he feels better today, breathing is better but shortness of breath comes and goes. He did experience improvement in his shortness of breath after receiving IV furosemide this morning. Currently, breathing comfortably laying nearly flat. He does endorse SOB with minimal activity. Review of Systems Review of Systems: All systems reviewed & are unremarkable except as noted in HPI and below Constitutional: Constitutional: Denies fatigue, Denies headache(s) and Denies weakness Eyes: Eyes: Denies blurry vision ENT: Reports Normal hearing present, Denies headache(s) and Denies neck pain Cardiovascular: Cardiovascular: Denies chest pain, Reports pedal edema and Reports dyspnea Respiratory: Respiratory: Reports dyspnea Gastrointestinal: Gastrointestinal: Denies abdominal pain Genitourinary: Genitourinary: Denies dysuria Musculoskeletal: Musculoskeletal: Denies neck pain Integumentary/Breasts: Skin/Breast: Denies dry skin Neurologic: Reports Normal hearing present, Denies headache(s) and Denies weakness Psychiatric: Psychiatric: Denies anxiety Endocrine: Endocrine: Denies fatigue Hematologic/Lymphatic:
[2021-06-11 14:06] LABS: NT Pro B Type Natriuretic Pept 1520 pg/mL (5-100)
[2021-06-11] MEDS: FUROSEMIDE INJ 40 MG/4 ML VIAL 20 MG IV PUSH (14:57)
--- NOTE | 2021-06-11 16:29 | PM.CNPUL ---
Assessment and Plan Assessment and plan (1) Chronic interstitial lung disease: Code(s): J84.9 - Interstitial pulmonary disease, unspecified Status: Acute Assessment and Plan: 86-year-old man with a history of chronic hypoxemic respiratory failure on supplemental oxygen, evidence of interstitial lung disease on chest x-rays, small pulmonary embolus on chest CT done at another facility, also in atrial fibrillation, receiving treatment with diuretics for congestive heart failure. On physical exam there is evidence of fine crackles related to his chronic interstitial lung disease. Need to review the recent chest CT he had at [facility]. If the CT images cannot be obtained will repeat the CT without contrast. Further recommendations depending upon the chest CT findings. (2) Pulmonary embolism on right: Code(s): I26.99 - Other pulmonary embolism without acute cor pulmonale Status: Acute (3) Acute and chronic respiratory failure with hypoxia: Code(s): J96.21 - Acute and chronic respiratory failure with hypoxia Status: Acute (4) Obstructive sleep apnea: Code(s): G47.33 - Obstructive sleep apnea (adult) (pediatric) Status: Acute Assessment and Plan: Patient has had obstructive sleep apnea and has been on CPAP. Reportedly he has no issues with CPAP treatment. He reports no daytime somnolence. (5) Congestive heart failure: Code(s): I50.9 - Heart failure, unspecified Status: Acute (6) Atrial fibrillation: Code(s): I48.91 - Unspecified atrial fibrillation Status: Acute History of Present Illness History of Present Illness Consult date: 06/11/21 Chief complaint: Pulmonary Embolism Narrative: this 86-year-old man was transferred to [facility] from [facility] 4 days ago. The patient was in his usual state of health until last Thursday when he started having unsteadiness and lightheadedness. He was evaluated at [facility] and a chest CT showed small filling defect in the right lower lobe likely representing pulmonary embolism; there was also evidence of possible superimposed edema versus pneumonia on chronic interstitial lung disease. The patient has had history of chronic lung disease possibly interstitial lung disease and has been on supplemental oxygen at 2 liters/minute continuously for approximately 18 months. Previous chest CTs are not available for review. 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 He is a never smoker. Has no other exposure history to other organic agents. His chronic symptoms include shortness of breath mild cough which is mostly dry. Since admission to [facility], the patient has been treated for congestive heart failure atrial fibrillation. His oxygen needs have increased from 2 L to minute to 4 liters/minute. His past medical history is also significant for previous flail chest related to a tractor accident, status post ribcage reconstructive surgery with titanium implants. also history of obstructive sleep apnea on CPAP. Review of Systems Review of Systems: All systems reviewed & are unremarkable except as noted in HPI and below PMFSH Past Medical History Medical History Arthritis Atrial fibrillation Chronic anticoagulation Chronic interstitial lung disease Chronic respiratory failure with hypoxia, on home oxygen therapy Congestive heart failure Flail chest (2008) From trauma obtained in a tractor accident. Hypertension Melanoma of face Obstructive sleep apnea Posttraumatic stress disorder Surgical History Surgical History History of appendectomy History of bilateral cataract extraction History of cardiac catheterization History of cholecystectomy History of melanoma excision Left side of face. History of thoracic surgery
[2021-06-12] VITALS (19 sets, daily range): BP systolic 100–132; BP diastolic 63–86; PULSE 83–114; RESP 18–25; TEMP 36.1–36.7; O2SAT 91–98
--- NOTE | 2021-06-12 00:28 | PC.NURSE ---
Patient transported to CT scan and back to 210 via bed with RN
[2021-06-12] MEDS: FUROSEMIDE INJ 40 MG/4 ML VIAL IV PUSH ×2 (08:39→17:27)
[2021-06-12] MEDS: APIXABAN 5 MG TABLET 10 MG PO ×2 (08:39→20:15)
[2021-06-12] MEDS: METOPROLOL TARTRATE 12.5 MG TABLET PO (08:39)
[2021-06-12] MEDS: PANTOPRAZOLE 40 MG TABLET PO (08:39)
--- NOTE | 2021-06-12 11:12 | PM.PNPUL ---
Progress Note: A&P Additional Plan Assessment and plan (1) Chronic interstitial lung disease: Code(s): J84.9 - Interstitial pulmonary disease, unspecified Status: Acute Assessment and Plan: 86-year-old man with a history of chronic hypoxemic respiratory failure on supplemental oxygen, evidence of interstitial lung disease on chest x-rays, small pulmonary embolus on chest CT done at another facility, also in atrial fibrillation, receiving treatment with diuretics for congestive heart failure. On physical exam there is evidence of fine crackles related to his chronic interstitial lung disease. Chest CT done yesterday showed extensive fibrotic changes bilaterally and superimposed ground-glass infiltrates primarily in the upper lobes. 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 Regarding superimposed ground-glass opacities in the upper lobes these could be related to CHF rather than to a pneumonia. I would discontinue antibiotics and IV steroids. The patient resides far away from [facility] and would like to have follow-up for his respiratory problems near his home. continue with current treatment for pulmonary embolism congestive heart failure, atrial fibrillation. Will reassess oxygen needs prior to discharging home. the case was discussed with the hospitalist. (2) Pulmonary embolism on right: Code(s): I26.99 - Other pulmonary embolism without acute cor pulmonale Status: Acute (3) Acute and chronic respiratory failure with hypoxia: Code(s): J96.21 - Acute and chronic respiratory failure with hypoxia Status: Acute (4) Obstructive sleep apnea: Code(s): G47.33 - Obstructive sleep apnea (adult) (pediatric) Status: Acute Assessment and Plan: Patient has had obstructive sleep apnea and has been on CPAP. Reportedly he has no issues with CPAP treatment. He reports no daytime somnolence. (5) Congestive heart failure: Code(s): I50.9 - Heart failure, unspecified Status: Acute (6) Atrial fibrillation: Code(s): I48.91 - Unspecified atrial fibrillation Status: Acute Subjective Date/time seen: 06/12/21 11:12 Patient remaining on high oxygen flow. He has no new respiratory symptoms. He has no fever chills cough or wheezing. He has been treated for pulmonary embolism , recurrent atrial fibrillation and congestive heart failure. He underwent chest CT last night. Review of Systems Review of Systems: All systems reviewed & are unremarkable except as noted in HPI and below Exam Narrative: GENERAL APPEARANCE: Well developed, well nourished, alert and cooperative, who appears to be in mild respiratory distress while receiving oxygen via nasal cannula SKIN: Inspection of the skin reveals no rashes, ulcerations or petechiae. HEENT: Sclerae anicteric and conjunctivae pink and moist. The oral mucosa, hard and soft palate, tongue and posterior pharynx were normal. NECK: Supple. There was no thyroid enlargement, and no tenderness, or masses were felt. CHEST: Normal AP diameter and normal contour without any kyphoscoliosis. LUNGS: Auscultation of the lungs revealed diffuse crackles posteriorly no wheezing CARDIAC: There was a irregular rate and rhythm without any murmurs. ABDOMEN: Soft and nontender with normal bowel sounds. There was no organomegaly. LYMPH NODES: No lymphadenopathy was appreciated in the neck. EXTREMITIES: No cyanosis, clubbing or edema. NEUROLOGIC: Alert and oriented x 3. Normal affect. Objective Data Vital Signs Vital Signs: Vital Signs - 24 hr 06/11/21 12:00 06/11/21 14:00 06/11/21 16:00 Temperature 36.4 C 36.6 C Pulse Rate 101 H 96 103 H Respiratory Rate 18 20 Blood Pressure 113/74 131/78 Pulse Oximetry 94 91 06/11/21 18:00 06/11/21 19:27 06/11/21 19:48 Temperature 36.5 C Puls
--- NOTE | 2021-06-12 11:18 | PM.PNCARD ---
Progress Note: A&P Assessment and Plan (1) Atrial fibrillation: Code(s): I48.91 - Unspecified atrial fibrillation Status: Acute Assessment and Plan: Heart rate is better controlled with low-dose metoprolol. Will increase metoprolol 25 mg p.o. b.i.d. Agree with anticoagulation as needed for treatment of his pulmonary embolism. Eventually he will need a more proper dose of treatment for atrial fibrillation prophylaxis also which should be 5 mg p.o. b.i.d.. 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 (3) Chronic respiratory failure with hypoxia, on home oxygen therapy: Code(s): J96.11 - Chronic respiratory failure with hypoxia; Z99.81 - Dependence on supplemental oxygen Status: Acute Assessment and Plan: Acute on chronic respiratory failure. Acute decompensation possibly from atrial fibrillation with rapid ventricular response versus pulmonary embolism though from a respiratory standpoint he has not improved with heart rate control. Agree with IV diuretics (4) Obstructive sleep apnea: Code(s): G47.33 - Obstructive sleep apnea (adult) (pediatric) Status: Acute Assessment and Plan: On CPAP (5) Pulmonary embolism on right: Code(s): I26.99 - Other pulmonary embolism without acute cor pulmonale Status: Acute Assessment and Plan: Small. On apixaban for a/c. (6) Chronic interstitial lung disease: Code(s): J84.9 - Interstitial pulmonary disease, unspecified Status: Acute (7) Acute and chronic respiratory failure with hypoxia: Code(s): J96.21 - Acute and chronic respiratory failure with hypoxia Status: Acute Assessment and Plan: As above Continue oxygen, diuresis and nebulizers. Continue also treatment for his pulmonary embolism. (8) Hypertension: Code(s): I10 - Essential (primary) hypertension Status: Acute Assessment and Plan: Stable Subjective Date/time seen: 06/12/21 11:18 Interval history: 86-year-old admitted for worsening shortness of breath and pulmonary embolism. Date of service 06/09/2021: He feels a little bit better but not significantly. Still on high-flow oxygen. No chest pain. No edema Date of service 06/10/2021: Feeling about the same. He is now on BiPAP. Denies any chest pain, palpitations. Date of service 06/11/2021: Back on high flow O2. States he feels better today, breathing is better but shortness of breath comes and goes. He did experience improvement in his shortness of breath after receiving IV furosemide this morning. Currently, breathing comfortably laying nearly flat. He does endorse SOB with minimal activity. Date of service 06/12/2021: Still on high-flow oxygen. Still short of breath at times. Still on IV diuretics. No chest pain Review of Systems Review of Systems: All systems reviewed & are unremarkable except as noted in HPI and below Constitutional: Constitutional: Denies fatigue, Denies headache(s) and Denies weakness Eyes: Eyes: Denies blurry vision ENT: Reports Normal hearing present, Denies headache(s) and Denies neck pain Cardiovascular: Cardiovascular: Denies chest pain, Reports pedal edema and Reports dyspnea Respiratory: Respiratory: Reports dyspnea Gastrointestinal: Gastrointestinal: Denies abdominal pain Genitourinary: Genitourinary: Denies dysuria Musculoskeletal: Musculoskeletal: Denies neck pain Integumentary/Breasts: Skin/Breast: Denies dry skin Neurologic: Reports Normal hearing present, Denies headache(s) and Denies weakness Psychiatric: Psychiatric: Denies anxiety Endocrine: Endocrine: Denies fatigue Hematologic/Lymphatic: Hematologic/Lymphatic: Denies easy bleeding Allergic/Immunologic:
[2021-06-12 13:15] LABS: Basophils Percent Auto 0.4 % (0.2-1.2); Eosinophils Absolute Auto 0.2 K/mm3 (0-0.3); Hematocrit 41.2 % (42.0-52.0); Hemoglobin 13.5 g/dL (14.0-18.0); Immature Granulocyte Absolute 0.04 K/mm3 (0.00-0.031); Immature Granulocyte Percent A 0.5 % (0-0.5); Lymphocytes Absolute Auto 1.24 K/mm3 (0.9-3.2); Lymphocytes Percent Auto 14.9 % (18.3-44.2); Mean Corpuscular HGB Conc 32.8 g/dl (32-36); Mean Corpuscular Hemoglobin 30.1 pg (26-34); Mean Corpuscular Volume 91.8 fl (80-100); Mean Platelet Volume 9.6 fl (7.4-10.4); Monocytes Absolute Auto 0.6 K/mm3 (0.1-0.6); Monocytes Percent Auto 7.3 % (2.6-8.5); Neutrophils Absolute Auto 6.2 K/mm3 (1.3-6.7); Neutrophils Percent Auto 74.9 % (45.5-73.1); Platelet Count Result 208 k/mm3 (150-375); Red Blood Count 4.49 M/mm3 (4.6-6.20); Red Cell Distribution Width 12.8 % (11.5-14.5); White Blood Count 8.3 K/mm3 (4.5-10.0)
[2021-06-12 13:30] LABS: Alanine Aminotransferase 26 U/L (4-50); Albumin Level 4.1 g/dL (3.5-5.1); Alkaline Phosphatase 80 U/L (38-126); Anion Gap 5 mmol/L (8-16); Aspartate Amino Transferase 37 U/L (17-59); Bilirubin,Total 1.2 mg/dL (0.2-1.3); Blood Urea Nitrogen 25 mg/dL (9-20); Calcium 8.6 mg/dL (8.4-10.2); Carbon Dioxide 39 mmol/L (22-30); Chloride 95 mmol/L (98-107); Estimated CRCL calculation 54 ml/min; Estimated Glomerular Filt Rate > 60; Glucose 124 mg/dL (65-110); Sodium 139 mmol/L (137-145)
--- NOTE | 2021-06-12 16:11 | PM.IMPN ---
Progress Note: A&P Additional Plan 86-year-old male with atrial fibrillation, chronic interstitial lung disease, obstructive sleep apnea, chronic respiratory failure on 2 L nasal cannula, and hypertension who was being directly admitted to the IMU from [facility] for evaluation of acute on chronic respiratory failure and pulmonary embolism. 1)Acute on Chronic Resp Failure: 2/2 Chronic interstitial Lung disease+Pulmonary embolism+?Diastolic HF C/w O2 support Appreciate cardiology and pulmonary help C/w IV diuresis c/w BB c/w Bronchodilators c/w Eliquis 2)DVT ppx: Eliquis 3)Code:DNR,poor long term care phlebotomist prognosis 4)Dispo:pending improvement Time Spent With Patient Time with patient: 15 - 25 minutes Subjective Date/time seen: 06/12/21 16:11 no major change clinically, remains on nasal canula Review of Systems Review of Systems: All systems reviewed & are unremarkable except as noted in HPI and below Constitutional: Constitutional: Reports fatigue and Reports lethargy Eyes: Eyes: Reports no additional eye complaints ENT: Reports system reviewed and no additional complaints, except as documented Cardiovascular: Cardiovascular: Reports no additional cardiovascular complaints Respiratory: Respiratory: Reports cough and Reports dyspnea on exertion Gastrointestinal: Gastrointestinal: Reports no additional gastrointestinal complaints Musculoskeletal: Musculoskeletal: Reports no additional musculoskeletal complaints Psychiatric: Psychiatric: Reports no additional psychiatric complaints Exam Const: General: no acute distress Other: on nasal canula HENMT: Mouth: Yes moist mucous membranes Eyes: Sclera: sclerae normal Pupils: Equal, round and reactive pupils present Neck: Neck: supple Resp: Other: decreased breath sounds B/l, no wheezing heard Cardio: Rate: regular rate Rhythm: regular rhythm GI: GI Palp: Yes Soft to palpation Auscultation: normal bowel sounds Skin: General skin exam: normal color Neuro: Cognition (Neuro): normal cognition Psych: Mental Status: mental status grossly normal Objective Data Vital Signs Vital Signs: Vital Signs - 24 hr 06/11/21 18:00 06/11/21 19:27 06/11/21 19:48 Temperature 97.7 F Pulse Rate 105 H 102 H 105 H Respiratory Rate 20 Blood Pressure 125/89 Pulse Oximetry 93 93 06/11/21 19:54 06/11/21 20:00 06/11/21 20:01 Temperature Pulse Rate 100 108 H 106 H Respiratory Rate 30 H Blood Pressure Pulse Oximetry 95 94 06/11/21 22:00 03/22/22 23:35 06/11/21 23:46 Temperature 97.6 F Pulse Rate 88 98 Respiratory Rate 20 Blood Pressure 108/72 Pulse Oximetry 93 94 06/12/21 00:00 06/12/21 00:06 06/12/21 02:00 Temperature Pulse Rate 98 91 99 Respiratory Rate Blood Pressure Pulse Oximetry 93 06/12/21 02:09 06/12/21 04:00 06/12/21 04:18 Temperature 98.0 F Pulse Rate 83 101 H 114 H Respiratory Rate 20 20 Blood Pressure 118/86 Pulse Oximetry 91 98 94 06/12/21 05:59 06/12/21 08:00 06/12/21 08:39 Temperature 97.3 F L Pulse Rate 100 91 99 Respiratory Rate 18 Blood Pressure 124/84 Pulse Oximetry 92 06/12/21 10:00 06/12/21 12:00 06/12/21 14:00 Temperature 97.8 F Pulse Rate 93 89 92 Respiratory Rate 22 H Blood Pressure 112/73 Pulse Oximetry 93 Intake/Output Intake/Output: Intake & Output 06/09/21 06/10/21 06/11/21 06/12/21 23:59 23:59 23:59 23:59 Intake Total 720 1130 1620 960 Output Total 4633 [id number] 497 [facility]1819 [phone] Meds/Results Medications: Active Medications Generic Name Dose Route Start Last Admin Trade Name Freq PRN Reason Stop Dose Admin Acetaminophen 650 mg 06/07/21 22:09 06/11/21 03:33 Acetaminophen 325 Mg Tablet PO 650 mg Q4H PRN Administration Mild Pain (1-3) or Fever Albuterol 2.5 mg 06/07/21 23:21 Albuterol Sulfate Neb 2.5 Mg/0.5 Ml Inh INHALATION Q6HRT PRN Shortness Of Breath Or Whe
[2021-06-12] MEDS: METOPROLOL TARTRATE 25 MG TABLET PO (20:14)
[2021-06-13] VITALS (18 sets, daily range): BP systolic 90–119; BP diastolic 54–79; PULSE 65–112; RESP 18–29; TEMP 36.3–37.2; O2SAT 91–97
[2021-06-13 07:52] LABS: Basophils Percent Auto 0.4 % (0.2-1.2); Eosinophils Absolute Auto 0.2 K/mm3 (0-0.3); Eosinophils Percent Auto 2.9 % (0-4.4); Hematocrit 37.6 % (42.0-52.0); Hemoglobin 12.1 g/dL (14.0-18.0); Immature Granulocyte Absolute 0.04 K/mm3 (0.00-0.031); Immature Granulocyte Percent A 0.5 % (0-0.5); Lymphocytes Absolute Auto 1.47 K/mm3 (0.9-3.2); Lymphocytes Percent Auto 18.8 % (18.3-44.2); Mean Corpuscular HGB Conc 32.2 g/dl (32-36); Mean Corpuscular Hemoglobin 29.8 pg (26-34); Mean Corpuscular Volume 92.6 fl (80-100); Mean Platelet Volume 9.5 fl (7.4-10.4); Monocytes Absolute Auto 0.6 K/mm3 (0.1-0.6); Monocytes Percent Auto 7.9 % (2.6-8.5); Neutrophils Absolute Auto 5.4 K/mm3 (1.3-6.7); Neutrophils Percent Auto 69.5 % (45.5-73.1); Platelet Count Result 190 k/mm3 (150-375); Red Blood Count 4.06 M/mm3 (4.6-6.20); Red Cell Distribution Width 12.7 % (11.5-14.5); White Blood Count 7.8 K/mm3 (4.5-10.0)
[2021-06-13 07:58] LABS: Alanine Aminotransferase 22 U/L (4-50); Albumin Level 3.6 g/dL (3.5-5.1); Alkaline Phosphatase 72 U/L (38-126); Aspartate Amino Transferase 30 U/L (17-59); Blood Urea Nitrogen 23 mg/dL (9-20); Calcium 8.3 mg/dL (8.4-10.2); Carbon Dioxide > 40 mmol/L (22-30); Chloride 96 mmol/L (98-107); Estimated CRCL calculation 54 ml/min; Estimated Glomerular Filt Rate > 60; Glucose 89 mg/dL (65-110); Potassium 4.1 mmol/L (3.4-5.0); Sodium 137 mmol/L (137-145)
[2021-06-13] MEDS: PANTOPRAZOLE 40 MG TABLET PO (08:46)
[2021-06-13] MEDS: FUROSEMIDE INJ 40 MG/4 ML VIAL IV PUSH ×2 (08:46→17:02)
[2021-06-13] MEDS: APIXABAN 5 MG TABLET 10 MG PO ×2 (08:46→20:11)
[2021-06-13] MEDS: METOPROLOL TARTRATE 25 MG TABLET PO ×2 (08:46→20:11)
--- NOTE | 2021-06-13 10:25 | PM.PNCARD ---
Progress Note: A&P Assessment and Plan (1) Atrial fibrillation: Code(s): I48.91 - Unspecified atrial fibrillation Status: Acute Assessment and Plan: He did convert back to sinus rhythm with low-dose metoprolol. Continue metoprolol. Agree with anticoagulation as needed for treatment of his pulmonary embolism. Eventually he will need a more proper dose of treatment for atrial fibrillation prophylaxis also which should be 5 mg p.o. b.i.d.. 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 (3) Chronic respiratory failure with hypoxia, on home oxygen therapy: Code(s): J96.11 - Chronic respiratory failure with hypoxia; Z99.81 - Dependence on supplemental oxygen Status: Acute Assessment and Plan: Acute on chronic respiratory failure. Acute decompensation possibly from atrial fibrillation with rapid ventricular response versus pulmonary embolism though from a respiratory standpoint he has not improved with heart rate control. Agree with IV diuretics (4) Obstructive sleep apnea: Code(s): G47.33 - Obstructive sleep apnea (adult) (pediatric) Status: Acute Assessment and Plan: On CPAP (5) Pulmonary embolism on right: Code(s): I26.99 - Other pulmonary embolism without acute cor pulmonale Status: Acute Assessment and Plan: Small. On apixaban for a/c. (6) Chronic interstitial lung disease: Code(s): J84.9 - Interstitial pulmonary disease, unspecified Status: Acute (7) Acute and chronic respiratory failure with hypoxia: Code(s): J96.21 - Acute and chronic respiratory failure with hypoxia Status: Acute Assessment and Plan: As above Continue oxygen, diuresis and nebulizers. Continue also treatment for his pulmonary embolism. (8) Hypertension: Code(s): I10 - Essential (primary) hypertension Status: Acute Assessment and Plan: Stable Subjective Date/time seen: 06/13/21 10:25 Interval history: 86-year-old admitted for worsening shortness of breath and pulmonary embolism. Date of service 06/09/2021: He feels a little bit better but not significantly. Still on high-flow oxygen. No chest pain. No edema Date of service 06/10/2021: Feeling about the same. He is now on BiPAP. Denies any chest pain, palpitations. Date of service 06/11/2021: Back on high flow O2. States he feels better today, breathing is better but shortness of breath comes and goes. He did experience improvement in his shortness of breath after receiving IV furosemide this morning. Currently, breathing comfortably laying nearly flat. He does endorse SOB with minimal activity. Date of service 06/12/2021: Still on high-flow oxygen. Still short of breath at times. Still on IV diuretics. No chest pain Date of service 06/13/2021: Oxygen dependence has gone down slightly. He has reverted back to sinus rhythm. Not in chest pain. Still short of breath especially with doing things as simple as talking Review of Systems Review of Systems: All systems reviewed & are unremarkable except as noted in HPI and below Constitutional: Constitutional: Denies fatigue, Denies headache(s) and Denies weakness Eyes: Eyes: Denies blurry vision ENT: Reports Normal hearing present, Denies headache(s) and Denies neck pain Cardiovascular: Cardiovascular: Denies chest pain, Reports pedal edema and Reports dyspnea Respiratory: Respiratory: Reports dyspnea Gastrointestinal: Gastrointestinal: Denies abdominal pain Genitourinary: Genitourinary: Denies dysuria Musculoskeletal: Musculoskeletal: Denies neck pain Integumentary/Breasts: Skin/Breast: Denies dry skin Neurologic: Reports Normal hearing present, Denies headache(s) and [place]
--- NOTE | 2021-06-13 14:31 | PM.IMPN ---
Progress Note: A&P Assessment and Plan (1) Acute and chronic respiratory failure with hypoxia: Code(s): J96.21 - Acute and chronic respiratory failure with hypoxia Status: Acute Assessment and Plan: The patient has acute on chronic respiratory failure, typically on 2 L nasal cannula, currently on 8 L high-flow nasal cannula Chest CTA showed a small pulmonary embolism in the right lower lobe posterior segmental artery associated with pulmonary continue anticoagulation continue diuresis The chest reviewed pulmonary was consulted IV antibiotics is stopped now along with IV steroids as well (2) Pulmonary embolism on right: Code(s): I26.99 - Other pulmonary embolism without acute cor pulmonale Status: Acute Assessment and Plan: The patient has been taking Eliquis 5 mg once daily for several years. He does well with that drug and is able to afford it thus we will continue with Eliquis. He will be started on 10 mg twice daily and after 7 days he can go back to taking 5 mg though he will need to make sure he takes that twice a day. 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 Nebulizers available as needed as detailed above. Continue to monitor follow-up with pulmonology as outpatient. (4) Obstructive sleep apnea: Code(s): G47.33 - Obstructive sleep apnea (adult) (pediatric) Status: Acute Assessment and Plan: Patient may use CPAP that he brought from home. (5) Congestive heart failure: Code(s): I50.9 - Heart failure, unspecified Status: Acute Assessment and Plan: Consult cardiology for further evaluation, appreciate assistance and recommendations echocardiogram reviewed: LVEF 55-60% with indeterminate diastolic function, right atrial chamber did dimension is severely enlarged and the left atrial chamber dimension is moderately enlarged. Systolic function is reduced. Patient also has elevated pulmonary pressures. Mild pulmonary hypertension Associated with pulmonary edema continue IV diuresis (6) Atrial fibrillation: Code(s): I48.91 - Unspecified atrial fibrillation Status: Acute Assessment and Plan: He is currently rate controlled and tells me that he is not chronically in AFib , not on a beta-kayleigh Patient was initiated on metoprolol tartrate b.i.d., continue with lisinopril and discontinue amlodipine Follow cardiology recommendation, appreciate assistance and recommendations Converted back to sinus rhythm (7) Chronic anticoagulation: Code(s): Z79.01 - superintendent terminal (current) use of anticoagulants Status: Acute Assessment and Plan: Eliquis dosing has been changed as detailed above. Patient was noncompliant with his Eliquis prior to admission. Patient was unknowingly taking another medication and not his blood thinner. (8) Hypertension: Code(s): I10 - Essential (primary) hypertension Status: Acute Assessment and Plan: Continue current treatment monitor Additional Plan Code status: DNR Subjective Date/time seen: 06/13/21 14:31 Interval history: Patient seen and examined Patient was admitted to the hospital with shortness of breath was found to have pulmonary edema and pulmonary embolism 06/13/2021 denies any new complaints. Converted to sinus rhythm overnight. Short of breath on exertion. Denies any chest pain cough or fever. Leg swelling is getting better. Review of Systems Review of Systems: All systems reviewed & are unremarkable except as noted in HPI and below Exam Narrative: Const: General: no acute distress Other: on nasal canula HENMT: Mouth: Yes moist mucous membranes Eyes: Sclera: sclerae normal Pupils:
--- NOTE | 2021-06-13 18:19 | PC.NURSE ---
This patient, Win Bonds, was transferred to [[id number] ] on 06/13/21 at 1819. Personal belongings sent with patient. Report given to [ FLO Wise @ 2515]. Appropriate documentation sent with patient. Transfer delayed d/t patient eating dinner prior to moving.
[2021-06-14] VITALS (18 sets, daily range): BP systolic 110–123; BP diastolic 59–69; PULSE 45–104; RESP 14–30; TEMP 36.6–37.1; O2SAT 88–95
[2021-06-14 06:14] LABS: Magnesium 2.3 mg/dL (1.6-2.3)
--- NOTE | 2021-06-14 08:31 | PM.PNPUL ---
Progress Note: A&P Additional Plan Assessment and plan (1) Chronic interstitial lung disease: Code(s): J84.9 - Interstitial pulmonary disease, unspecified Status: Acute Assessment and Plan: 86-year-old man with a history of chronic hypoxemic respiratory failure on supplemental oxygen, evidence of interstitial lung disease on chest x-rays, small pulmonary embolus on chest CT done at another facility, also in atrial fibrillation, receiving treatment with diuretics for congestive heart failure. On physical exam there is evidence of fine crackles related to his chronic interstitial lung disease. Chest CT showed extensive fibrotic changes bilaterally and superimposed ground-glass infiltrates primarily in the upper lobes. 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 On further review the superimposed ground-glass infiltrates are most likely fibrotic changes, not related to CHF or pneumonia. Prior to this admission, the patient was using oxygen at 2 liters/minute continuously which was probably inadequate given, the extensive fibrotic changes on chest CT and the highly likely pulmonary hypertension. I anticipate the patient will require higher oxygen flow than the one he was previously on. Patient will need pulmonary function testing as an outpatient. Depending upon the pulmonary function testing, the patient may or may not qualify for antifibrotic treatment. 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 will consider apnea link on patient's own CPAP and hopefully lower, less than 5L/min O2 flow, prior to D/C home. The patient will not be coming to our outpatient pulmonary clinic as he lives far away from [place]. (2) Pulmonary embolism on right: Code(s): I26.99 - Other pulmonary embolism without acute cor pulmonale Status: Acute (3) Acute and chronic respiratory failure with hypoxia: Code(s): J96.21 - Acute and chronic respiratory failure with hypoxia Status: Acute (4) Obstructive sleep apnea: Code(s): G47.33 - Obstructive sleep apnea (adult) (pediatric) Status: Acute Assessment and Plan: Patient has had obstructive sleep apnea and has been on CPAP. Reportedly he has no issues with CPAP treatment. He reports no daytime somnolence. (5) Congestive heart failure: Code(s): I50.9 - Heart failure, unspecified Status: Acute (6) Atrial fibrillation: Code(s): I48.91 - Unspecified atrial fibrillation Status: Acute Subjective Date/time seen: 06/14/21 08:31 Patient has had no new respiratory symptoms. Currently on 8 liters/minute supplemental oxygen. Ambulating using a walker in room. Receiving BiPAP support at night at 60% FiO2. Brought his own CPAP machine but not using it. Review of Systems Review of Systems: All systems reviewed & are unremarkable except as noted in HPI and below Exam Narrative: GENERAL APPEARANCE: Well developed, well nourished, alert and cooperative, who appears to be in mild respiratory distress while receiving oxygen via nasal cannula SKIN: Inspection of the skin reveals no rashes, ulcerations or petechiae. HEENT: Sclerae anicteric and conjunctivae pink and moist. The oral mucosa, hard and soft palate, tongue and posterior pharynx were normal. NECK: Supple. There was no thyroid enlargement, and no tenderness, or masses were felt. CHEST: Normal AP diameter and normal contour without any kyphoscoliosis. LUNGS: Auscultation of the lungs revealed diffuse crackles posteriorly no wheezing CARDIAC: There was a irregular rate and rhythm without any murmurs. ABDOMEN: Soft and nontender with normal bowel sounds. There was no organomegaly. LYMPH NODES: No lymphadenopathy was appreciated in the neck. EXTREMITIES: No cyanosis,
--- NOTE | 2021-06-14 08:37 | PCNWS ---
Weekly nutritional screen. Patient is tolerating current diet with adequate intake. No nutritional needs at this time.
[2021-06-14] MEDS: PANTOPRAZOLE 40 MG TABLET PO (08:58)
[2021-06-14] MEDS: METOPROLOL TARTRATE 25 MG TABLET PO ×2 (08:58→16:37)
[2021-06-14] MEDS: APIXABAN 5 MG TABLET 10 MG PO ×2 (09:00→20:29)
[2021-06-14] MEDS: FUROSEMIDE INJ 40 MG/4 ML VIAL IV PUSH (09:00)
--- NOTE | 2021-06-14 09:50 | PM.PNCARD ---
Progress Note: A&P Assessment and Plan (1) Atrial fibrillation: Code(s): I48.91 - Unspecified atrial fibrillation Status: Acute Assessment and Plan: He did convert back to sinus rhythm with low-dose metoprolol. Continue metoprolol. Agree with anticoagulation as needed for treatment of his pulmonary embolism. Eventually he will need a more proper dose of treatment for atrial fibrillation prophylaxis also which should be 5 mg p.o. b.i.d.. 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 (3) Chronic respiratory failure with hypoxia, on home oxygen therapy: Code(s): J96.11 - Chronic respiratory failure with hypoxia; Z99.81 - Dependence on supplemental oxygen Status: Acute Assessment and Plan: Acute on chronic respiratory failure. Acute decompensation possibly from atrial fibrillation with rapid ventricular response versus pulmonary embolism though from a respiratory standpoint he has not improved with heart rate control. Will shift him back to p.o. furosemide today. (4) Obstructive sleep apnea: Code(s): G47.33 - Obstructive sleep apnea (adult) (pediatric) Status: Acute Assessment and Plan: On CPAP (5) Pulmonary embolism on right: Code(s): I26.99 - Other pulmonary embolism without acute cor pulmonale Status: Acute Assessment and Plan: Small. On apixaban for a/c. (6) Chronic interstitial lung disease: Code(s): J84.9 - Interstitial pulmonary disease, unspecified Status: Acute (7) Acute and chronic respiratory failure with hypoxia: Code(s): J96.21 - Acute and chronic respiratory failure with hypoxia Status: Acute Assessment and Plan: As above Continue oxygen, diuresis and nebulizers. Continue also treatment for his pulmonary embolism. (8) Hypertension: Code(s): I10 - Essential (primary) hypertension Status: Acute Assessment and Plan: Stable Subjective Date/time seen: 06/14/21 09:50 Interval history: 86-year-old admitted for worsening shortness of breath and pulmonary embolism. Date of service 06/09/2021: He feels a little bit better but not significantly. Still on high-flow oxygen. No chest pain. No edema Date of service 06/10/2021: Feeling about the same. He is now on BiPAP. Denies any chest pain, palpitations. Date of service 06/11/2021: Back on high flow O2. States he feels better today, breathing is better but shortness of breath comes and goes. He did experience improvement in his shortness of breath after receiving IV furosemide this morning. Currently, breathing comfortably laying nearly flat. He does endorse SOB with minimal activity. Date of service 06/12/2021: Still on high-flow oxygen. Still short of breath at times. Still on IV diuretics. No chest pain Date of service 06/13/2021: Oxygen dependence has gone down slightly. He has reverted back to sinus rhythm. Not in chest pain. Still short of breath especially with doing things as simple as talking Date of service 06/14/2021: Doing a little better today. He does still have shortness of breath. In NSR on telemetry and has had a couple of brief runs of atrial tachycardia. No chest pain or palpitations. Review of Systems Review of Systems: All systems reviewed & are unremarkable except as noted in HPI and below Constitutional: Constitutional: Denies fatigue, Denies headache(s) and Denies weakness Eyes: Eyes: Denies blurry vision ENT: Reports Normal hearing present, Denies headache(s) and Denies neck pain Cardiovascular: Cardiovascular: Denies chest pain, Reports pedal edema and Reports dyspnea Respiratory: Respiratory: Reports dyspnea Gastrointestinal: Gastrointestinal: Denies abdominal pain Genito
--- NOTE | 2021-06-14 10:50 | PM.IMPN ---
Progress Note: A&P Assessment and Plan (1) Acute and chronic respiratory failure with hypoxia: Code(s): J96.21 - Acute and chronic respiratory failure with hypoxia Status: Acute Assessment and Plan: The patient has acute on chronic respiratory failure, typically on 2 L nasal cannula, currently on 8 L high-flow nasal cannula Chest CTA showed a small pulmonary embolism in the right lower lobe posterior segmental artery associated with pulmonary continue anticoagulation continue diuresis The chest reviewed pulmonary was consulted IV antibiotics is stopped now along with IV steroids as well Continue with IV diuresis as ordered (2) Pulmonary embolism on right: Code(s): I26.99 - Other pulmonary embolism without acute cor pulmonale Status: Acute Assessment and Plan: The patient has been taking Eliquis 5 mg once daily for several years. He does well with that drug and is able to afford it thus we will continue with Eliquis. He will be started on 10 mg twice daily and after 7 days he can go back to taking 5 mg though he will need to make sure he takes that twice a day. 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 Nebulizers available as needed as detailed above. Continue to monitor follow-up with pulmonology as outpatient. (4) Obstructive sleep apnea: Code(s): G47.33 - Obstructive sleep apnea (adult) (pediatric) Status: Acute Assessment and Plan: Patient may use CPAP that he brought from home. (5) Congestive heart failure: Code(s): I50.9 - Heart failure, unspecified Status: Acute Assessment and Plan: Consult cardiology for further evaluation, appreciate assistance and recommendations echocardiogram reviewed: LVEF 55-60% with indeterminate diastolic function, right atrial chamber did dimension is severely enlarged and the left atrial chamber dimension is moderately enlarged. Systolic function is reduced. Patient also has elevated pulmonary pressures. Mild pulmonary hypertension Associated with pulmonary edema continue IV diuresis (6) Atrial fibrillation: Code(s): I48.91 - Unspecified atrial fibrillation Status: Acute Assessment and Plan: He is currently rate controlled and tells me that he is not chronically in AFib , not on a beta-kayleigh Patient was initiated on metoprolol tartrate b.i.d., continue with lisinopril and discontinue amlodipine Follow cardiology recommendation, appreciate assistance and recommendations Converted back to sinus rhythm (7) Chronic anticoagulation: Code(s): Z79.01 - snf (current) use of anticoagulants Status: Acute Assessment and Plan: Eliquis dosing has been changed as detailed above. Patient was noncompliant with his Eliquis prior to admission. Patient was unknowingly taking another medication and not his blood thinner. (8) Hypertension: Code(s): I10 - Essential (primary) hypertension Status: Acute Assessment and Plan: Continue current treatment monitor Additional Plan Code status: DNR Subjective Date/time seen: 06/14/21 10:50 Interval history: Patient seen and examined Patient was admitted to the hospital with shortness of breath was found to have pulmonary edema and pulmonary embolism 06/13/2021 denies any new complaints. Converted to sinus rhythm overnight. Short of breath on exertion. Denies any chest pain cough or fever. Leg swelling is getting better. 06/14/2021 no overnight events. Working with occupational therapy this morning. S of breath is improving. Oxygen requirement has improved he is down to 6 L his baseline is 2 L at home. Has shortness of breath with exertion but has impro
[2021-06-14 12:51] LABS: Basophils Percent Auto 0.5 % (0.2-1.2); Eosinophils Absolute Auto 0.2 K/mm3 (0-0.3); Eosinophils Percent Auto 2.7 % (0-4.4); Hematocrit 37.3 % (42.0-52.0); Hemoglobin 11.7 g/dL (14.0-18.0); Immature Granulocyte Absolute 0.05 K/mm3 (0.00-0.031); Immature Granulocyte Percent A 0.6 % (0-0.5); Lymphocytes Absolute Auto 1.55 K/mm3 (0.9-3.2); Mean Corpuscular HGB Conc 31.4 g/dl (32-36); Mean Corpuscular Hemoglobin 29.8 pg (26-34); Mean Corpuscular Volume 95.2 fl (80-100); Mean Platelet Volume 10.2 fl (7.4-10.4); Monocytes Absolute Auto 0.6 K/mm3 (0.1-0.6); Monocytes Percent Auto 7.3 % (2.6-8.5); Neutrophils Absolute Auto 6.1 K/mm3 (1.3-6.7); Neutrophils Percent Auto 70.9 % (45.5-73.1); Platelet Count Result 195 k/mm3 (150-375); Red Blood Count 3.92 M/mm3 (4.6-6.20); Red Cell Distribution Width 13.1 % (11.5-14.5); White Blood Count 8.6 K/mm3 (4.5-10.0)
[2021-06-14 13:04] LABS: Alanine Aminotransferase 21 U/L (4-50); Albumin Level 3.5 g/dL (3.5-5.1); Alkaline Phosphatase 72 U/L (38-126); Anion Gap 3 mmol/L (8-16); Aspartate Amino Transferase 31 U/L (17-59); Blood Urea Nitrogen 26 mg/dL (9-20); Calcium 8.3 mg/dL (8.4-10.2); Carbon Dioxide 38 mmol/L (22-30); Chloride 95 mmol/L (98-107); Estimated CRCL calculation 49 ml/min; Estimated Glomerular Filt Rate > 60; Glucose 86 mg/dL (65-110); Potassium 3.9 mmol/L (3.4-5.0); Sodium 136 mmol/L (137-145)
--- NOTE | 2021-06-14 16:16 | ECG_ITS ---
Measurements Intervals [place] Rate: 77 P: 76 ME: 176 QRS: -19 QRSD: 107 T: 1 QT: 412 QTc: 468 Interpretive Statements SINUS RHYTHM WITH FREQUENT SUPRAVENTRICULAR PREMATURE COMPLEXES POSSIBLE LEFT VENTRICULAR HYPERTROPHY [VOLTAGE CRITERIA PLUS LAE OR QRS WIDENING] ST DEVIATION AND MODERATE T-WAVE ABNORMALITY, CONSIDER ANTERIOR ISCHEMIA [-0.1+ mV T WAVE IN V3/V4] INCOMPLETE RIGHT BUNDLE BRANCH BLOCK ABNORMAL ECG COMPARED TO ECG 06/08/2021 14:34:36 SINUS RHYTHM NOW PRESENT Electronically Signed On 06-14-2021 16:31:01 CDT by Kevan Meza M.D.
[2021-06-14] MEDS: FUROSEMIDE 40 MG TABLET PO (16:37)
[2021-06-15] VITALS (21 sets, daily range): BP systolic 105–134; BP diastolic 46–73; PULSE 50–81; RESP 18–30; TEMP 36.4–36.8; O2SAT 70–95
[2021-06-15 05:11] LABS: Basophils Percent Auto 0.4 % (0.2-1.2); Eosinophils Absolute Auto 0.3 K/mm3 (0-0.3); Eosinophils Percent Auto 2.9 % (0-4.4); Hematocrit 36.9 % (42.0-52.0); Hemoglobin 11.7 g/dL (14.0-18.0); Immature Granulocyte Absolute 0.05 K/mm3 (0.00-0.031); Immature Granulocyte Percent A 0.6 % (0-0.5); Lymphocytes Absolute Auto 1.51 K/mm3 (0.9-3.2); Lymphocytes Percent Auto 16.6 % (18.3-44.2); Mean Corpuscular HGB Conc 31.7 g/dl (32-36); Mean Corpuscular Hemoglobin 29.7 pg (26-34); Mean Corpuscular Volume 93.7 fl (80-100); Mean Platelet Volume 9.8 fl (7.4-10.4); Monocytes Absolute Auto 0.6 K/mm3 (0.1-0.6); Monocytes Percent Auto 6.9 % (2.6-8.5); Neutrophils Absolute Auto 6.6 K/mm3 (1.3-6.7); Neutrophils Percent Auto 72.6 % (45.5-73.1); Platelet Count Result 187 k/mm3 (150-375); Red Blood Count 3.94 M/mm3 (4.6-6.20); Red Cell Distribution Width 12.7 % (11.5-14.5); White Blood Count 9.1 K/mm3 (4.5-10.0)
[2021-06-15 05:24] LABS: Alanine Aminotransferase 23 U/L (4-50); Albumin Level 3.6 g/dL (3.5-5.1); Alkaline Phosphatase 79 U/L (38-126); Aspartate Amino Transferase 33 U/L (17-59); Bilirubin,Total 1.1 mg/dL (0.2-1.3); Blood Urea Nitrogen 25 mg/dL (9-20); Calcium 8.5 mg/dL (8.4-10.2); Carbon Dioxide > 40 mmol/L (22-30); Chloride 94 mmol/L (98-107); Estimated CRCL calculation 54 ml/min; Estimated Glomerular Filt Rate > 60; Glucose 129 mg/dL (65-110); Potassium 3.7 mmol/L (3.4-5.0); Sodium 138 mmol/L (137-145)
[2021-06-15] MEDS: METOPROLOL TARTRATE 25 MG TABLET PO ×2 (08:29→17:27)
[2021-06-15] MEDS: PANTOPRAZOLE 40 MG TABLET PO (08:29)
[2021-06-15] MEDS: FUROSEMIDE 40 MG TABLET PO ×2 (08:29→17:27)
[2021-06-15] MEDS: APIXABAN 5 MG TABLET 10 MG PO (08:29)
--- NOTE | 2021-06-15 10:08 | PM.PNPUL ---
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 He is a nonsmoker. CT scan shows diffuse interstitial alveolar infiltrates consistent with chronic hypersensitivity pneumonitis. Outside hospital CT report states that these infiltrates have progressed compared with 10/31/2019 I do not have any of these images to review. He has followed with a fruit buyer closer to his home who have told him that he has chronic fibrosis with an anticipated respiratory decline. per the family he was never given any trials of immunosuppressants or anti fibrotic agents. The family is aware of this diagnosis. Patient was previously on 2 L nasal cannula at home prior to this admission. I spoke to the daughter Laura she will try to bring us in prior images for review. There is no evidence of a bacterial viral infection currently I agree with no antibiotics. There is no evidence of bronchospasm at this time I will not give systemic steroids. There is no evidence of wheezing and I will not start bronchodilators. The patient remains hypoxemic and I suspect the main issue is progression of patient's chronic interstitial lung disease likely from grain dust inhalation and hypersensitivity pneumonitis ( I suspect PE and fluid overload are minor components). I will repeat CT of chest and will ultimately need outpatient PFTs to assess the severity of his disease. We will attempt to wean his oxygen as tolerated. The patient has required 6-10 L nasal cannula oxygen over the last 6 days and currently is on 8 L nasal cannula saturations 93%. I suspect that this is close to his new baseline. Will follow with you. (2) Pulmonary embolism on right: Code(s): I26.99 - Other pulmonary embolism without acute cor pulmonale Status: Acute Assessment and Plan: Patient has CT angiogram on 06/07/2021 with a right posterior segment pulmonary artery embolism. Patient has been on Eliquis 10 mg p.o. b.i.d. for 7 days and I will decrease to 5 mg p.o. b.i.d. on 06/15/2021. this may also be contributing to the patient's worsening hypoxemia. (3) Obstructive sleep apnea: Code(s): G47.33 - Obstructive sleep apnea (adult) (pediatric) Status: Acute Assessment and Plan: The patient tells me he was diagnosed with obstructive sleep apnea and placed on home BiPAP machine which he is currently wearing with 2 L nasal bleed in at night. I do not have a recent download and will attempt to obtain that on 06/17. The patient had A serum bicarbonate of 27 and 2 blood gases on 06/07/2021 with a PaCO2 of 44 and 42 so there is no evidence of chronic hypercarbic respiratory failure. Tonight I will attempt to place him on his home BiPAP unit with 6 L bleed in and perform an overnight oximetry to assess his oxygenation on these settings. I spoke with respiratory therapy (4) Congestive heart failure: Code(s): I50.9 - Heart failure, unspecified Status: Acute Assessment and Plan: the patient had a high BNP which has improved to 15 20 on 06/11 and he is currently on Lasix 40 p.o. b.i.d.. He is diuresed 7.2 L and his weight has decreased from 85-78.8 kg. He has had a good response and would continue as aggressive diuresis as tolerated per his cardiac and renal systems as outlined by the hospitalist and the Cardiology teams. Fluid overload may also be contributing to patient's worsening oxygenation. Subjective Date/time seen: 06/15/21 10:08 Interval history: 06/15/21 Patient is essentially unchanged clinically. He was able to get out of bed and walk to a chair in the room today. Currently is on 8 L nasal cannula with saturations 93%. Last 90 wore the hospital BiPAP 02/25 at 55% FiO2 with saturations 94%
--- NOTE | 2021-06-15 10:20 | PM.IMPN ---
Progress Note: A&P Assessment and Plan (1) Acute and chronic respiratory failure with hypoxia: Code(s): J96.21 - Acute and chronic respiratory failure with hypoxia Status: Acute Assessment and Plan: The patient has acute on chronic respiratory failure, typically on 2 L nasal cannula, currently on 8 L high-flow nasal cannula Chest CTA showed a small pulmonary embolism in the right lower lobe posterior segmental artery associated with pulmonary continue anticoagulation continue diuresis The chest reviewed pulmonary was consulted IV antibiotics is stopped now along with IV steroids as well Continue with IV diuresis as ordered Change to oral Lasix Chest x-ray 06/14/2021 unchanged BiPAP at night will change to home unit (2) Pulmonary embolism on right: Code(s): I26.99 - Other pulmonary embolism without acute cor pulmonale Status: Acute Assessment and Plan: The patient has been taking Eliquis 5 mg once daily for several years. He does well with that drug and is able to afford it thus we will continue with Eliquis. He will be started on 10 mg twice daily and after 7 days he can go back to taking 5 mg though he will need to make sure he takes that twice a day. Will start him on 5 mg b.i.d. 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 Nebulizers available as needed as detailed above. Continue to monitor follow-up with pulmonology as outpatient. (4) Obstructive sleep apnea: Code(s): G47.33 - Obstructive sleep apnea (adult) (pediatric) Status: Acute Assessment and Plan: Patient may use CPAP that he brought from home. switch to home unit from [email or web address] (5) Congestive heart failure: Code(s): I50.9 - Heart failure, unspecified Status: Acute Assessment and Plan: Consult cardiology for further evaluation, appreciate assistance and recommendations echocardiogram reviewed: LVEF 55-60% with indeterminate diastolic function, right atrial chamber did dimension is severely enlarged and the left atrial chamber dimension is moderately enlarged. Systolic function is reduced. Patient also has elevated pulmonary pressures. Mild pulmonary hypertension Associated with pulmonary edema continue IV diuresis Change to oral diuresis (6) Atrial fibrillation: Code(s): I48.91 - Unspecified atrial fibrillation Status: Acute Assessment and Plan: He is currently rate controlled and tells me that he is not chronically in AFib , not on a beta-kayleigh Patient was initiated on metoprolol tartrate b.i.d., continue with lisinopril and discontinue amlodipine Follow cardiology recommendation, appreciate assistance and recommendations Converted back to sinus rhythm Intermittently going to atrial tachycardia. Metoprolol dose increased to 25 mg Q 8 hour. Had a couple of nonsustained ventricular tachycardia this morning. (7) Chronic anticoagulation: Code(s): Z79.01 - [facility]FP (current) use of anticoagulants Status: Acute Assessment and Plan: Eliquis dosing has been changed as detailed above. Patient was noncompliant with his Eliquis prior to admission. Patient was unknowingly taking another medication and not his blood thinner. (8) Hypertension: Code(s): I10 - Essential (primary) hypertension Status: Acute Assessment and Plan: Continue current treatment monitor Additional Plan Code status: DNR Subjective Date/time seen: 06/15/21 10:20 Interval history: Patient seen and examined Patient was admitted to the hospital with shortness of breath was found to have pulmonary edema and pulmonary embolism 06/13/2021 denies any new complaints. Converted to sinus rhythm over
--- NOTE | 2021-06-15 14:37 | PCRCNOTE ---
Trialed pt on home unit with 6 L/min bleed in per Dr. Valencia request. Pt's O2 saturation ranged between 87-91% over a period of 30 minute.
[2021-06-15] MEDS: FUROSEMIDE INJ 40 MG/4 ML VIAL IV PUSH (18:41)
[2021-06-15] MEDS: IPRATROPIUM BR 0.02% INH SOLN 0.5 MG/2.5 ML VIAL INHALATION (20:36)
[2021-06-15] MEDS: ALBUTEROL SULFATE NEB 2.5 MG/0.5 ML INH INHALATION (20:36)
[2021-06-15] MEDS: APIXABAN 5 MG TABLET BY MOUTH (21:37)
--- NOTE | 2021-06-15 22:35 | PCRCNOTE ---
Pt ordered overnight oximetry study on his home BiPAP unit with 6L O2 bleed in. Unable to perform study due to pt's deteriorating condition. Pt's O2 demand increased dramatically during the day and pt was transferred to IMU. Pt currently requiring 15L HFNC during the day and our V60 NIV at 60% FiO2 overnight. His home machine cannot support that level of supplemental O2.
[2021-06-16] VITALS (19 sets, daily range): BP systolic 108–129; BP diastolic 58–71; PULSE 56–79; RESP 16–34; TEMP 36.3–36.9; O2SAT 90–97
[2021-06-16] MEDS: METOPROLOL TARTRATE 25 MG TABLET PO ×3 (01:17→17:37)
[2021-06-16 04:35] LABS: Basophils Percent Auto 0.3 % (0.2-1.2); Eosinophils Absolute Auto 0.3 K/mm3 (0-0.3); Eosinophils Percent Auto 2.9 % (0-4.4); Hematocrit 38.1 % (42.0-52.0); Hemoglobin 12.1 g/dL (14.0-18.0); Immature Granulocyte Absolute 0.04 K/mm3 (0.00-0.031); Immature Granulocyte Percent A 0.4 % (0-0.5); Lymphocytes Absolute Auto 1.42 K/mm3 (0.9-3.2); Lymphocytes Percent Auto 15.2 % (18.3-44.2); Mean Corpuscular HGB Conc 31.8 g/dl (32-36); Mean Corpuscular Hemoglobin 29.4 pg (26-34); Mean Corpuscular Volume 92.5 fl (80-100); Mean Platelet Volume 9.6 fl (7.4-10.4); Monocytes Absolute Auto 0.7 K/mm3 (0.1-0.6); Monocytes Percent Auto 7.2 % (2.6-8.5); Neutrophils Absolute Auto 6.9 K/mm3 (1.3-6.7); Platelet Count Result 196 k/mm3 (150-375); Red Blood Count 4.12 M/mm3 (4.6-6.20); Red Cell Distribution Width 12.7 % (11.5-14.5); White Blood Count 9.4 K/mm3 (4.5-10.0)
[2021-06-16 04:57] LABS: Alanine Aminotransferase 24 U/L (4-50); Albumin Level 3.7 g/dL (3.5-5.1); Alkaline Phosphatase 85 U/L (38-126); Aspartate Amino Transferase 34 U/L (17-59); Bilirubin,Total 1.3 mg/dL (0.2-1.3); Blood Urea Nitrogen 30 mg/dL (9-20); Calcium 8.6 mg/dL (8.4-10.2); Carbon Dioxide > 40 mmol/L (22-30); Chloride 93 mmol/L (98-107); Estimated CRCL calculation 49 ml/min; Estimated Glomerular Filt Rate > 60; Glucose 102 mg/dL (65-110); Magnesium 2.3 mg/dL (1.6-2.3); Sodium 136 mmol/L (137-145)
[2021-06-16 07:36] LABS: NT Pro B Type Natriuretic Pept 968 pg/mL (5-100)
--- NOTE | 2021-06-16 08:11 | PM.PNPUL ---
Progress Note: A&P Assessment and Plan (1) Chronic interstitial lung disease: Code(s): J84.9 - Interstitial pulmonary disease, unspecified Status: Acute Assessment and Plan: 06/15 Patient with a history of tractor trauma in 2008 as well as grain dust exposure throughout his life. He is a nonsmoker. CT scan shows diffuse interstitial alveolar infiltrates consistent with chronic hypersensitivity pneumonitis. Outside hospital CT report states that these infiltrates have progressed compared with 10/31/2019 I do not have any of these images to review. 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 per the family he was never given any trials of immunosuppressants or anti fibrotic agents. The family is aware of this diagnosis. Patient was previously on 2 L nasal cannula at home prior to this admission. I spoke to the daughter Laura she will try to bring us in prior images for review. There is no evidence of a bacterial viral infection currently I agree with no antibiotics. There is no evidence of bronchospasm at this time I will not give systemic steroids. There is no evidence of wheezing and I will not start bronchodilators. The patient remains hypoxemic and I suspect the main issue is progression of patient's chronic interstitial lung disease likely from grain dust inhalation and hypersensitivity pneumonitis ( I suspect PE and fluid overload are minor components). I will repeat CT of chest and will ultimately need outpatient PFTs to assess the severity of his disease. We will attempt to wean his oxygen as tolerated. The patient has required 6-10 L nasal cannula oxygen over the last 6 days and currently is on 8 L nasal cannula saturations 93%. I suspect that this is close to his new baseline. 06/16 yesterday the patient choked and had increased oxygen requirements up to 15 L high flow. Chest x-ray was performed which showed no change in is diffuse interstitial alveolar infiltrates. Zosyn was added and Lasix was changed from 40 p.o. b.i.d. to 40 IV b.i.d.. The patient was tried on his home BiPAP machine with 6 L bleed in but was hypoxemic. The patient tells me he is breathing fine today, states that hemoptysis may be slightly better and has no chest pain. Patient wore the home BiPAP last night 02/25 with 60% FiO2. Currently patient saturations are 94% on 15 L high-flow nasal cannula. Plan today will be to continue his Zosyn, repeat chest x-ray in the morning and plan for CT scan of the chest on 06/18 for comparison to scan on 06/12 to assess infiltrates after diuresis and check for pneumonia. Will follow with you. (2) Pulmonary embolism on right: Code(s): I26.99 - Other pulmonary embolism without acute cor pulmonale Status: Acute Assessment and Plan: 06/[address] angiogram on 06/07/2021 with a right posterior segment pulmonary artery embolism. Patient has been on Eliquis 10 mg p.o. b.i.d. for 7 days and I will decrease to 5 mg p.o. b.i.d. on 06/15/2021. this may also be contributing to the patient's worsening hypoxemia. 06/16 continue eliquis 5 BID. (3) Obstructive sleep apnea: Code(s): G47.33 - Obstructive sleep apnea (adult) (pediatric) Status: Acute Assessment and Plan: 06/15 The patient tells me he was diagnosed with obstructive sleep apnea and placed on home BiPAP machine which he is currently wearing with 2 L nasal bleed in at night. I do not have a recent download and will attempt to obtain that on 06/17. The patient had A serum bicarbonate of 27 and 2 blood gases on 06/07/2021 with a PaCO2 of 44 and 42 so there is no evidence of chronic hypercarbic respiratory failure. Tonight I will attempt to place him on his home BiPAP unit with 6 L bleed in and perform an overnight oximetry to assess his oxygenation on these settings. I spoke with respiratory therapy. 06/16
[2021-06-16] MEDS: FUROSEMIDE INJ 40 MG/4 ML VIAL IV PUSH ×2 (09:00→17:37)
[2021-06-16] MEDS: PANTOPRAZOLE 40 MG TABLET PO (09:01)
[2021-06-16] MEDS: APIXABAN 5 MG TABLET BY MOUTH ×2 (09:01→21:38)
--- NOTE | 2021-06-16 09:26 | PM.PNCARD ---
Progress Note: A&P Additional Plan 86-year-old man with: Relatively severe chronic interstitial lung disease that appears to be progressing. He has paroxysmal atrial fibrillation in this setting and currently is maintaining sinus rhythm with beta-kayleigh treatment. No changes to suggest today. Obviously long-term prognosis is limited given his advanced age and advancing lung disease. Ezequiel Kwoalski MD [facility] Subjective Date/time seen: 06/16/21 09:26 Interval history: 86-year-old admitted for worsening shortness of breath and pulmonary embolism. Date of service 06/09/2021: He feels a little bit better but not significantly. Still on high-flow oxygen. No chest pain. No edema Date of service 06/10/2021: Feeling about the same. He is now on BiPAP. Denies any chest pain, palpitations. Date of service 06/11/2021: Back on high flow O2. States he feels better today, breathing is better but shortness of breath comes and goes. He did experience improvement in his shortness of breath after receiving IV furosemide this morning. Currently, breathing comfortably laying nearly flat. He does endorse SOB with minimal activity. Date of service 06/12/2021: Still on high-flow oxygen. Still short of breath at times. Still on IV diuretics. No chest pain Date of service 06/13/2021: Oxygen dependence has gone down slightly. He has reverted back to sinus rhythm. Not in chest pain. Still short of breath especially with doing things as simple as talking Date of service 06/14/2021: Doing a little better today. He does still have shortness of breath. In NSR on telemetry and has had a couple of brief runs of atrial tachycardia. No chest pain or palpitations. Date of service 06/16/2021: Patient weak but offers no cardiovascular complaints today. Notes of yesterday reviewed with patient having a choking episode. That seems to have not caused any long-term sequelae. Still maintaining sinus rhythm on telemetry. Exam Narrative: Pleasant elderly man sitting upright in bed. Appears to be in no acute distress. Appears stated age Const: General: comfortable and no acute distress HENMT: General nose exam: Normal nares present Eyes: Sclera: sclerae normal Neck: Neck: supple and no JVD Chest: Other: No reproducible chest wall pain to palpation Resp: Auscultation: not clear to auscultation bilaterally and crackles (velcro crackles bilateral bases ) Cardio: Rate: regular rate Rhythm: regular rhythm Peripheral pulses: Peripheral pulses 2+ throughout GI: Auscultation: normal bowel sounds Skin: General skin exam: normal color Neuro: Cranial nerves: Yes Normal hearing present Cognition (Neuro): normal cognition Speech: normal speech Extrem: General: edema (Very mild lower extremity edema bilaterally) Psych: Mental Status: mental status grossly normal Objective Data Vital Signs Vital Signs: Vital Signs - 24 hr 06/15/21 10:20 06/15/21 12:00 06/15/21 14:00 Temperature 36.6 C 36.8 C Pulse Rate 64 64 65 Respiratory Rate 20 22 H Blood Pressure 127/69 134/65 Pulse Oximetry 90 95 06/15/21 14:10 06/15/21 16:03 06/15/21 16:50 Temperature Pulse Rate 66 67 Respiratory Rate Blood Pressure Pulse Oximetry 90 70 L 06/15/21 16:55 06/15/21 18:00 06/15/21 18:05 Temperature Pulse Rate Respiratory Rate Blood Pressure Pulse Oximetry 92 74 L 92 06/15/21 19:25 06/15/21 20:00 06/15/21 20:33 Temperature 36.4 C Pulse Rate 68 62 Respiratory Rate 20 18 Blood Pressure 124/73 Pulse Oximetry 95 93 93 06/15/21 20:43 06/15/21 22:00 06/15/21 23:55 Temperature 36.4 C L Pulse Rate 62 66 70 Respiratory Rate 18 27 H 30 H Blood Pressure 105/46 L Pulse Oximetry 95 95 06/16/21 00:00 06/16/21 01:17 06/16/21 01:25 Temperature Pulse Rate 68 73 79 Respiratory Rate 30 H 23 H Blood Pressure Pulse Oximetry 95 97 06/16/21 02:00 06/16/21 04:00 06/16/21 08:00 Temper
--- NOTE | 2021-06-16 11:47 | PCSTNOTE ---
Please refer to the Bedside Swallow Evaluation in the EMR. Please note, silent aspiration cannot be ruled out at bedside.
--- NOTE | 2021-06-16 14:20 | PM.IMPN ---
Progress Note: A&P Assessment and Plan (1) Acute and chronic respiratory failure with hypoxia: Code(s): J96.21 - Acute and chronic respiratory failure with hypoxia Status: Acute Assessment and Plan: The patient has acute on chronic respiratory failure, typically on 2 L nasal cannula, currently on 8 L high-flow nasal cannula Chest CTA showed a small pulmonary embolism in the right lower lobe posterior segmental artery associated with pulmonary continue anticoagulation continue diuresis The chest reviewed pulmonary was consulted IV antibiotics is stopped now along with IV steroids as well Continue with IV diuresis as ordered Change to oral Lasix Chest x-ray 06/14/2021 unchanged BiPAP at night will change to home unit Choking episode 06/15/2021 with worsening hypoxia Increased oxygen requirement but remains stable Started on Zosyn for coverage for aspiration pneumonia/pneumonitis (2) Pulmonary embolism on right: Code(s): I26.99 - Other pulmonary embolism without acute cor pulmonale Status: Acute Assessment and Plan: The patient has been taking Eliquis 5 mg once daily for several years. He does well with that drug and is able to afford it thus we will continue with Eliquis. He will be started on 10 mg twice daily and after 7 days he can go back to taking 5 mg though he will need to make sure he takes that twice a day. Will start him on 5 mg b.i.d. 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 Nebulizers available as needed as detailed above. Continue to monitor follow-up with pulmonology as outpatient. Once infectious etiology ruled out consideration of steroid Discussed with pulmonary 06/16/2021 (4) Obstructive sleep apnea: Code(s): G47.33 - Obstructive sleep apnea (adult) (pediatric) Status: Acute Assessment and Plan: Patient may use CPAP that he brought from home. switch to home unit (5) Congestive heart failure: Code(s): I50.9 - Heart failure, unspecified Status: Acute Assessment and Plan: Consult cardiology for further evaluation, appreciate assistance and recommendations echocardiogram reviewed: LVEF 55-60% with indeterminate diastolic function, right atrial chamber did dimension is severely enlarged and the left atrial chamber dimension is moderately enlarged. Systolic function is reduced. Patient also has elevated pulmonary pressures. Mild pulmonary hypertension Associated with pulmonary edema continue IV diuresis Change to oral diuresis now with worsening hypoxia switch to IV diuresis l (6) Atrial fibrillation: Code(s): I48.91 - Unspecified atrial fibrillation Status: Acute Assessment and Plan: He is currently rate controlled and tells me that he is not chronically in AFib , not on a beta-kayleigh Patient was initiated on metoprolol tartrate b.i.d., continue with lisinopril and discontinue amlodipine Follow cardiology recommendation, appreciate assistance and recommendations Converted back to sinus rhythm Intermittently going to atrial tachycardia. Metoprolol dose increased to 25 mg Q 8 hour. Had a couple of nonsustained ventricular tachycardia 06/15/2021 Cardiology following (7) Chronic anticoagulation: Code(s): Z79.01 - information technology officer (current) use of anticoagulants Status: Acute Assessment and Plan: Eliquis dosing has been changed as detailed above. Patient was noncompliant with his Eliquis prior to admission. Patient was unknowingly taking another medication and not his blood thinner. (8) Hypertension: Code(s): I10 - Essential (primary) hypertension Status: Acute Assessment and Plan: Continue current treatment monitor A
--- NOTE | 2021-06-16 22:00 | PCRCNOTE ---
Pt still requiring too much supplemental O2 to be able to perform overnight oximetry study. Pt on 15L HFNC with sats in high 80s to low 90s. Pt will be placed on V60 when he's ready to go to sleep.
[2021-06-17] VITALS (22 sets, daily range): BP systolic 103–154; BP diastolic 60–75; PULSE 54–73; RESP 20–25; TEMP 35.7–36.6; O2SAT 90–97
[2021-06-17] MEDS: METOPROLOL TARTRATE 25 MG TABLET PO ×3 (00:54→17:35)
[2021-06-17 05:34] LABS: Basophils Percent Auto 0.4 % (0.2-1.2); Eosinophils Absolute Auto 0.4 K/mm3 (0-0.3); Eosinophils Percent Auto 3.7 % (0-4.4); Hematocrit 38.9 % (42.0-52.0); Hemoglobin 12.3 g/dL (14.0-18.0); Immature Granulocyte Absolute 0.06 K/mm3 (0.00-0.031); Immature Granulocyte Percent A 0.6 % (0-0.5); Lymphocytes Absolute Auto 1.36 K/mm3 (0.9-3.2); Lymphocytes Percent Auto 13.5 % (18.3-44.2); Mean Corpuscular HGB Conc 31.6 g/dl (32-36); Mean Corpuscular Hemoglobin 29.9 pg (26-34); Mean Corpuscular Volume 94.4 fl (80-100); Mean Platelet Volume 9.8 fl (7.4-10.4); Monocytes Absolute Auto 0.7 K/mm3 (0.1-0.6); Monocytes Percent Auto 6.8 % (2.6-8.5); Neutrophils Absolute Auto 7.6 K/mm3 (1.3-6.7); Platelet Count Result 199 k/mm3 (150-375); Red Blood Count 4.12 M/mm3 (4.6-6.20); Red Cell Distribution Width 12.7 % (11.5-14.5); White Blood Count 10.1 K/mm3 (4.5-10.0)
[2021-06-17 06:01] LABS: Alanine Aminotransferase 26 U/L (4-50); Albumin Level 3.7 g/dL (3.5-5.1); Alkaline Phosphatase 91 U/L (38-126); Aspartate Amino Transferase 38 U/L (17-59); Bilirubin,Total 1.4 mg/dL (0.2-1.3); Blood Urea Nitrogen 32 mg/dL (9-20); Calcium 8.6 mg/dL (8.4-10.2); Carbon Dioxide > 40 mmol/L (22-30); Chloride 92 mmol/L (98-107); Estimated CRCL calculation 45 ml/min; Estimated Glomerular Filt Rate > 60; Glucose 128 mg/dL (65-110); Magnesium 2.4 mg/dL (1.6-2.3); Potassium 4.1 mmol/L (3.4-5.0); Sodium 139 mmol/L (137-145)
--- NOTE | 2021-06-17 08:54 | PM.PNPUL ---
Progress Note: A&P Assessment and Plan (1) Chronic interstitial lung disease: Code(s): J84.9 - Interstitial pulmonary disease, unspecified Status: Acute Assessment and Plan: 06/15 Patient with a history of tractor trauma in 2008 as well as grain dust exposure throughout his life. He is a nonsmoker. CT scan shows diffuse interstitial alveolar infiltrates consistent with chronic hypersensitivity pneumonitis. Outside hospital CT report states that these infiltrates have progressed compared with 10/31/2019 I do not have any of these images to review. 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 per the family he was never given any trials of immunosuppressants or anti fibrotic agents. The family is aware of this diagnosis. Patient was previously on 2 L nasal cannula at home prior to this admission. I spoke to the daughter Laura she will try to bring us in prior images for review. There is no evidence of a bacterial viral infection currently I agree with no antibiotics. There is no evidence of bronchospasm at this time I will not give systemic steroids. There is no evidence of wheezing and I will not start bronchodilators. The patient remains hypoxemic and I suspect the main issue is progression of patient's chronic interstitial lung disease likely from grain dust inhalation and hypersensitivity pneumonitis ( I suspect PE and fluid overload are minor components). I will repeat CT of chest and will ultimately need outpatient PFTs to assess the severity of his disease. We will attempt to wean his oxygen as tolerated. The patient has required 6-10 L nasal cannula oxygen over the last 6 days and currently is on 8 L nasal cannula saturations 93%. I suspect that this is close to his new baseline. 06/16 yesterday the patient choked and had increased oxygen requirements up to 15 L high flow. Chest x-ray was performed which showed no change in is diffuse interstitial alveolar infiltrates. Zosyn was added and Lasix was changed from 40 p.o. b.i.d. to 40 IV b.i.d.. The patient was tried on his home BiPAP machine with 6 L bleed in but was hypoxemic. The patient tells me he is breathing fine today, states that hemoptysis may be slightly better and has no chest pain. Patient wore the home BiPAP last night 02/25 with 60% FiO2. Currently patient saturations are 94% on 15 L high-flow nasal cannula. Plan today will be to continue his Zosyn, repeat chest x-ray in the morning and plan for CT scan of the chest on 06/18 for comparison to scan on 06/12 to assess infiltrates after diuresis and check for pneumonia. 06/17 Patient is awake and alert in mild respiratory distress. Saturations are 92% on 15 L high flow nasal cannula. Afebrile, White blood cell count is 10.1, creatinine is 1.10. Chest x-ray with mild progression of diffuse interstitial alveolar infiltrates throughout both lungs. I will obtain a CT angiogram of the chest tomorrow morning to assess his PE and lung infiltrates. I spoke to his daughter Mariangel and plan to have a family meeting at 12:15 p.m. today to provide medical updates and formulate a plan that will work best for patient and family. Will follow with you. (2) Pulmonary embolism on right: Code(s): I26.99 - Other pulmonary embolism without acute cor pulmonale Status: Acute Assessment and Plan: 06/[address] angiogram on 06/07/2021 with a right posterior segment pulmonary artery embolism. Patient has been on Eliquis 10 mg p.o. b.i.d. for 7 days and I will decrease to 5 mg p.o. b.i.d. on 06/15/2021. this may also be contributing to the patient's worsening hypoxemia. 06/16 continue eliquis 5 BID. 06/17 continue eliquis 5 BID (3) Obstructive sleep apnea: Code(s): G47.33 - Obstructive sleep apnea (adult) (pediatric) Status: Acute Assessment and Plan: 06/15 The patient tells me h
[2021-06-17] MEDS: FUROSEMIDE INJ 40 MG/4 ML VIAL IV PUSH (09:00)
[2021-06-17] MEDS: PANTOPRAZOLE 40 MG TABLET PO (09:45)
[2021-06-17] MEDS: APIXABAN 5 MG TABLET BY MOUTH ×2 (09:45→20:53)
--- NOTE | 2021-06-17 11:58 | PCPTNOTE ---
Attempted to see patient for PT at this time, however patient asked if therapy can come back later due to patient having a conference call with his doctor at 12:15.
--- NOTE | 2021-06-17 15:00 | PM.IMPN ---
Progress Note: A&P Assessment and Plan (1) Acute and chronic respiratory failure with hypoxia: Code(s): J96.21 - Acute and chronic respiratory failure with hypoxia Status: Acute Assessment and Plan: The patient has acute on chronic respiratory failure, typically on 2 L nasal cannula, currently on 8 L high-flow nasal cannula Chest CTA showed a small pulmonary embolism in the right lower lobe posterior segmental artery associated with pulmonary continue anticoagulation continue diuresis The chest reviewed pulmonary was consulted IV antibiotics is stopped now along with IV steroids as well Continue with IV diuresis as ordered Change to oral Lasix Chest x-ray 06/14/2021 unchanged BiPAP at night will change to home unit Choking episode 06/15/2021 with worsening hypoxia Increased oxygen requirement but remains stable. Continues to be on same oxygen requirement Started on Zosyn for coverage for aspiration pneumonia/pneumonitis Consideration of steroid and re-evaluation of the CTA in the morning planned. Discussed with Pulmonary (2) Pulmonary embolism on right: Code(s): I26.99 - Other pulmonary embolism without acute cor pulmonale Status: Acute Assessment and Plan: The patient has been taking Eliquis 5 mg once daily for several years. He does well with that drug and is able to afford it thus we will continue with Eliquis. He will be started on 10 mg twice daily and after 7 days he can go back to taking 5 mg though he will need to make sure he takes that twice a day. Will start him on 5 mg b.i.d. 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 Nebulizers available as needed as detailed above. Continue to monitor follow-up with pulmonology as outpatient. Once infectious etiology ruled out consideration of steroid Discussed with pulmonary 06/16/2021, 06/17/2021 (4) Obstructive sleep apnea: Code(s): G47.33 - Obstructive sleep apnea (adult) (pediatric) Status: Acute Assessment and Plan: Patient may use CPAP that he brought from home. switch to home unit (5) Congestive heart failure: Code(s): I50.9 - Heart failure, unspecified Status: Acute Assessment and Plan: Consult cardiology for further evaluation, appreciate assistance and recommendations echocardiogram reviewed: LVEF 55-60% with indeterminate diastolic function, right atrial chamber did dimension is severely enlarged and the left atrial chamber dimension is moderately enlarged. Systolic function is reduced. Patient also has elevated pulmonary pressures. Mild pulmonary hypertension Associated with pulmonary edema continue IV diuresis Change to oral diuresis now with worsening hypoxia switch to IV diuresis. Will hold IV diuresis for planned CT in the morning. (6) Atrial fibrillation: Code(s): I48.91 - Unspecified atrial fibrillation Status: Acute Assessment and Plan: He is currently rate controlled and tells me that he is not chronically in AFib , not on a beta-kayleigh Patient was initiated on metoprolol tartrate b.i.d., continue with lisinopril and discontinue amlodipine Follow cardiology recommendation, appreciate assistance and recommendations Converted back to sinus rhythm Intermittently going to atrial tachycardia. Metoprolol dose increased to 25 mg Q 8 hour. Had a couple of nonsustained ventricular tachycardia 06/15/2021 Cardiology following (7) Chronic anticoagulation: Code(s): Z79.01 - shelter (current) use of anticoagulants Status: Acute Assessment and Plan: Eliquis dosing has been changed as detailed above. Patient was noncompliant with his Eliquis prior to admission. Patient was unknowingly taking another
--- NOTE | 2021-06-17 21:53 | PCRCNOTE ---
pt U/A to have apnea link due to increased O2 needs
[2021-06-18] VITALS (25 sets, daily range): BP systolic 106–118; BP diastolic 60–88; PULSE 55–115; RESP 16–24; TEMP 35.9–36.9; O2SAT 89–97
[2021-06-18] MEDS: METOPROLOL TARTRATE 25 MG TABLET PO ×3 (00:42→18:07)
[2021-06-18 05:19] LABS: Basophils Absolute Auto 0.1 K/mm3 (0.0-0.1); Basophils Percent Auto 0.6 % (0.2-1.2); Eosinophils Absolute Auto 0.4 K/mm3 (0-0.3); Hematocrit 38.2 % (42.0-52.0); Hemoglobin 12.1 g/dL (14.0-18.0); Immature Granulocyte Absolute 0.08 K/mm3 (0.00-0.031); Immature Granulocyte Percent A 0.8 % (0-0.5); Lymphocytes Absolute Auto 1.45 K/mm3 (0.9-3.2); Lymphocytes Percent Auto 13.8 % (18.3-44.2); Mean Corpuscular HGB Conc 31.7 g/dl (32-36); Mean Corpuscular Hemoglobin 29.1 pg (26-34); Mean Corpuscular Volume 91.8 fl (80-100); Mean Platelet Volume 9.9 fl (7.4-10.4); Monocytes Absolute Auto 0.6 K/mm3 (0.1-0.6); Neutrophils Absolute Auto 7.9 K/mm3 (1.3-6.7); Neutrophils Percent Auto 74.8 % (45.5-73.1); Platelet Count Result 201 k/mm3 (150-375); Red Blood Count 4.16 M/mm3 (4.6-6.20); Red Cell Distribution Width 12.6 % (11.5-14.5); White Blood Count 10.5 K/mm3 (4.5-10.0)
[2021-06-18 05:37] LABS: Alanine Aminotransferase 26 U/L (4-50); Albumin Level 3.6 g/dL (3.5-5.1); Alkaline Phosphatase 89 U/L (38-126); Aspartate Amino Transferase 36 U/L (17-59); Bilirubin,Total 1.3 mg/dL (0.2-1.3); Blood Urea Nitrogen 30 mg/dL (9-20); Calcium 8.6 mg/dL (8.4-10.2); Carbon Dioxide > 40 mmol/L (22-30); Chloride 93 mmol/L (98-107); Estimated CRCL calculation 49 ml/min; Estimated Glomerular Filt Rate > 60; Glucose 105 mg/dL (65-110); Magnesium 2.5 mg/dL (1.6-2.3); Potassium 3.8 mmol/L (3.4-5.0); Sodium 135 mmol/L (137-145)
--- NOTE | 2021-06-18 08:49 | PM.PNPUL ---
Progress Note: A&P Assessment and Plan (1) Chronic interstitial lung disease: Code(s): J84.9 - Interstitial pulmonary disease, unspecified Status: Acute Assessment and Plan: 06/15 Patient with a history of tractor trauma in 2008 as well as grain dust exposure throughout his life. He is a nonsmoker. CT scan shows diffuse interstitial alveolar infiltrates consistent with chronic hypersensitivity pneumonitis. Outside hospital CT report states that these infiltrates have progressed compared with 10/31/2019 I do not have any of these images to review. 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 per the family he was never given any trials of immunosuppressants or anti fibrotic agents. The family is aware of this diagnosis. Patient was previously on 2 L nasal cannula at home prior to this admission. I spoke to the daughter Laura she will try to bring us in prior images for review. There is no evidence of a bacterial viral infection currently I agree with no antibiotics. There is no evidence of bronchospasm at this time I will not give systemic steroids. There is no evidence of wheezing and I will not start bronchodilators. The patient remains hypoxemic and I suspect the main issue is progression of patient's chronic interstitial lung disease likely from grain dust inhalation and hypersensitivity pneumonitis ( I suspect PE and fluid overload are minor components). I will repeat CT of chest and will ultimately need outpatient PFTs to assess the severity of his disease. We will attempt to wean his oxygen as tolerated. The patient has required 6-10 L nasal cannula oxygen over the last 6 days and currently is on 8 L nasal cannula saturations 93%. I suspect that this is close to his new baseline. 06/16 yesterday the patient choked and had increased oxygen requirements up to 15 L high flow. Chest x-ray was performed which showed no change in is diffuse interstitial alveolar infiltrates. Zosyn was added and Lasix was changed from 40 p.o. b.i.d. to 40 IV b.i.d.. The patient was tried on his home BiPAP machine with 6 L bleed in but was hypoxemic. The patient tells me he is breathing fine today, states that hemoptysis may be slightly better and has no chest pain. Patient wore the home BiPAP last night 02/25 with 60% FiO2. Currently patient saturations are 94% on 15 L high-flow nasal cannula. Plan today will be to continue his Zosyn, repeat chest x-ray in the morning and plan for CT scan of the chest on 06/18 for comparison to scan on 06/12 to assess infiltrates after diuresis and check for pneumonia. 06/17 Patient is awake and alert in mild respiratory distress. Saturations are 92% on 15 L high flow nasal cannula. Afebrile, White blood cell count is 10.1, creatinine is 1.10. Chest x-ray with mild progression of diffuse interstitial alveolar infiltrates throughout both lungs. I will obtain a CT angiogram of the chest tomorrow morning to assess his PE and lung infiltrates. I spoke to his daughter Mariangel and plan to have a family meeting at 12:15 p.m. today to provide medical updates and formulate a plan that will work best for patient and family. 06/18 After speaking with his primary business dean Dr. 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 His TLC was 63% predicted on 06/10. His DLCO was 55% predicted on 06/10. After discussing with the case with her she also felt it was appropriate to also obtain hospice consult. He was on 3 L oxygen during the day and 2 bleed in. Patient is to have a CT angiogram of the chest today to assess his infiltrates. After reviewing this I will decide if we should attempt a course of steroids. Will follow with you. (2) Pulmonary embolism on right: Code(s):
--- NOTE | 2021-06-18 08:54 | ECG_ITS ---
Measurements Intervals [place] Rate: 57 P: 74 RI: 181 QRS: -20 QRSD: 107 T: -17 QT: 449 QTc: 440 Interpretive Statements SINUS BRADYCARDIA POSSIBLE LEFT VENTRICULAR HYPERTROPHY [VOLTAGE CRITERIA PLUS LAE OR QRS WIDENING] ST DEVIATION AND MODERATE T-WAVE ABNORMALITY, CONSIDER ANTERIOR ISCHEMIA [-0.1+ mV T WAVE IN V3/V4] ABNORMAL ECG COMPARED TO ECG 06/14/2021 16:24:43 PACS ARE NO LONGER PRESENT Electronically Signed On 06-18-2021 17:27:51 CDT by Ezequiel Kowalski M.D.
[2021-06-18] MEDS: APIXABAN 5 MG TABLET BY MOUTH ×2 (09:12→21:13)
[2021-06-18] MEDS: PANTOPRAZOLE 40 MG TABLET PO (09:12)
[2021-06-18] MEDS: methylPREDNISolone SOD SUCC 40 MG VIAL IV PUSH ×2 (12:32→18:08)
--- NOTE | 2021-06-18 12:55 | PM.IMPN ---
Progress Note: A&P Assessment and Plan (1) Acute and chronic respiratory failure with hypoxia: Code(s): J96.21 - Acute and chronic respiratory failure with hypoxia Status: Acute Assessment and Plan: The patient has acute on chronic respiratory failure, typically on 2 L nasal cannula, currently on 8 L high-flow nasal cannula Chest CTA showed a small pulmonary embolism in the right lower lobe posterior segmental artery associated with pulmonary continue anticoagulation continue diuresis The chest reviewed pulmonary was consulted IV antibiotics is stopped now along with IV steroids as well Continue with IV diuresis as ordered Change to oral Lasix Chest x-ray 06/14/2021 unchanged BiPAP at night will change to home unit Choking episode 06/15/2021 with worsening hypoxia Increased oxygen requirement but remains stable. Continues to be on same oxygen requirement Started on Zosyn for coverage for aspiration pneumonia/pneumonitis CTA performed 06/18/2021 with no PE but diffuse lung disease. Previous sander operator noted signs of UIP. He has been started on Solu-Medrol by Pulmonary here to see any improvement. If none moving toward hospice has been contemplated (2) Pulmonary embolism on right: Code(s): I26.99 - Other pulmonary embolism without acute cor pulmonale Status: Acute Assessment and Plan: The patient has been taking Eliquis 5 mg once daily for several years. He does well with that drug and is able to afford it thus we will continue with Eliquis. He will be started on 10 mg twice daily and after 7 days he can go back to taking 5 mg though he will need to make sure he takes that twice a day. Will start him on 5 mg b.i.d. Eliquis. Continue on Eliquis 5 mg b.i.d. 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 Nebulizers available as needed as detailed above. Continue to monitor follow-up with pulmonology as outpatient. Once infectious etiology ruled out consideration of steroid Discussed with pulmonary 06/16/2021, 06/17/2021 (4) Obstructive sleep apnea: Code(s): G47.33 - Obstructive sleep apnea (adult) (pediatric) Status: Acute Assessment and Plan: Patient may use CPAP that he brought from home. switch to home unit (5) Congestive heart failure: Code(s): I50.9 - Heart failure, unspecified Status: Acute Assessment and Plan: Consult cardiology for further evaluation, appreciate assistance and recommendations echocardiogram reviewed: LVEF 55-60% with indeterminate diastolic function, right atrial chamber did dimension is severely enlarged and the left atrial chamber dimension is moderately enlarged. Systolic function is reduced. Patient also has elevated pulmonary pressures. Mild pulmonary hypertension Associated with pulmonary edema continue IV diuresis Change to oral diuresis now with worsening hypoxia switch to IV diuresis. IV diuresis on hold due to planned CT scan will resume from this evening (6) Atrial fibrillation: Code(s): I48.91 - Unspecified atrial fibrillation Status: Acute Assessment and Plan: He is currently rate controlled and tells me that he is not chronically in AFib , not on a beta-kayleigh Patient was initiated on metoprolol tartrate b.i.d., continue with lisinopril and discontinue amlodipine Follow cardiology recommendation, appreciate assistance and recommendations Converted back to sinus rhythm Intermittently going to atrial tachycardia. Metoprolol dose increased to 25 mg Q 8 hour. Had a couple of nonsustained ventricular tachycardia 06/15/2021 Cardiology following (7) Chronic anticoagulation: Code(s): Z79.01 - skilled nursing (current) use of anticoagulants Status: Acu
[2021-06-18] MEDS: FUROSEMIDE INJ 40 MG/4 ML VIAL IV PUSH (18:12)
[2021-06-19] VITALS (21 sets, daily range): BP systolic 100–116; BP diastolic 59–73; PULSE 52–121; RESP 20–25; TEMP 36.3–36.7; O2SAT 88–95
[2021-06-19] MEDS: METOPROLOL TARTRATE 25 MG TABLET PO ×3 (01:05→17:59)
[2021-06-19] MEDS: methylPREDNISolone SOD SUCC 40 MG VIAL IV PUSH ×5 (01:06→23:39)
[2021-06-19 06:47] LABS: Basophils Percent Auto 0.1 % (0.2-1.2); Hematocrit 38.6 % (42.0-52.0); Hemoglobin 12.3 g/dL (14.0-18.0); Immature Granulocyte Absolute 0.06 K/mm3 (0.00-0.031); Immature Granulocyte Percent A 0.6 % (0-0.5); Lymphocytes Absolute Auto 0.79 K/mm3 (0.9-3.2); Lymphocytes Percent Auto 7.3 % (18.3-44.2); Mean Corpuscular HGB Conc 31.9 g/dl (32-36); Mean Corpuscular Hemoglobin 29.7 pg (26-34); Mean Corpuscular Volume 93.2 fl (80-100); Mean Platelet Volume 10.4 fl (7.4-10.4); Monocytes Absolute Auto 0.1 K/mm3 (0.1-0.6); Monocytes Percent Auto 1.3 % (2.6-8.5); Neutrophils Absolute Auto 9.9 K/mm3 (1.3-6.7); Neutrophils Percent Auto 90.7 % (45.5-73.1); Platelet Count Result 220 k/mm3 (150-375); Red Blood Count 4.14 M/mm3 (4.6-6.20); Red Cell Distribution Width 12.5 % (11.5-14.5); White Blood Count 10.9 K/mm3 (4.5-10.0)
[2021-06-19 06:55] LABS: Alanine Aminotransferase 33 U/L (4-50); Albumin Level 3.7 g/dL (3.5-5.1); Alkaline Phosphatase 89 U/L (38-126); Anion Gap 7 mmol/L (8-16); Aspartate Amino Transferase 41 U/L (17-59); Bilirubin,Total 0.9 mg/dL (0.2-1.3); Blood Urea Nitrogen 35 mg/dL (9-20); Calcium 8.7 mg/dL (8.4-10.2); Carbon Dioxide 38 mmol/L (22-30); Chloride 95 mmol/L (98-107); Estimated CRCL calculation 41 ml/min; Estimated Glomerular Filt Rate 58; Glucose 132 mg/dL (65-110); Magnesium 2.5 mg/dL (1.6-2.3); Potassium 4.1 mmol/L (3.4-5.0); Sodium 140 mmol/L (137-145)
[2021-06-19] MEDS: PANTOPRAZOLE 40 MG TABLET PO (09:10)
[2021-06-19] MEDS: APIXABAN 5 MG TABLET BY MOUTH ×2 (09:10→20:54)
--- NOTE | 2021-06-19 10:06 | PM.PNPUL ---
Progress Note: A&P Assessment and Plan (1) Chronic interstitial lung disease: Code(s): J84.9 - Interstitial pulmonary disease, unspecified Status: Acute Assessment and Plan: 06/15 Patient with a history of tractor trauma in 2008 as well as grain dust exposure throughout his life. He is a nonsmoker. CT scan shows diffuse interstitial alveolar infiltrates consistent with chronic hypersensitivity pneumonitis. Outside hospital CT report states that these infiltrates have progressed compared with 10/31/2019 I do not have any of these images to review. 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 per the family he was never given any trials of immunosuppressants or anti fibrotic agents. The family is aware of this diagnosis. Patient was previously on 2 L nasal cannula at home prior to this admission. I spoke to the daughter Laura she will try to bring us in prior images for review. There is no evidence of a bacterial viral infection currently I agree with no antibiotics. There is no evidence of bronchospasm at this time I will not give systemic steroids. There is no evidence of wheezing and I will not start bronchodilators. The patient remains hypoxemic and I suspect the main issue is progression of patient's chronic interstitial lung disease likely from grain dust inhalation and hypersensitivity pneumonitis ( I suspect PE and fluid overload are minor components). I will repeat CT of chest and will ultimately need outpatient PFTs to assess the severity of his disease. We will attempt to wean his oxygen as tolerated. The patient has required 6-10 L nasal cannula oxygen over the last 6 days and currently is on 8 L nasal cannula saturations 93%. I suspect that this is close to his new baseline. 06/16 yesterday the patient choked and had increased oxygen requirements up to 15 L high flow. Chest x-ray was performed which showed no change in is diffuse interstitial alveolar infiltrates. Zosyn was added and Lasix was changed from 40 p.o. b.i.d. to 40 IV b.i.d.. The patient was tried on his home BiPAP machine with 6 L bleed in but was hypoxemic. The patient tells me he is breathing fine today, states that hemoptysis may be slightly better and has no chest pain. Patient wore the home BiPAP last night 02/25 with 60% FiO2. Currently patient saturations are 94% on 15 L high-flow nasal cannula. Plan today will be to continue his Zosyn, repeat chest x-ray in the morning and plan for CT scan of the chest on 06/18 for comparison to scan on 06/12 to assess infiltrates after diuresis and check for pneumonia. 06/17 Patient is awake and alert in mild respiratory distress. Saturations are 92% on 15 L high flow nasal cannula. Afebrile, White blood cell count is 10.1, creatinine is 1.10. Chest x-ray with mild progression of diffuse interstitial alveolar infiltrates throughout both lungs. I will obtain a CT angiogram of the chest tomorrow morning to assess his PE and lung infiltrates. I spoke to his daughter Mariangel and plan to have a family meeting at 12:15 p.m. today to provide medical updates and formulate a plan that will work best for patient and family. 06/18 After speaking with his primary hearing care professional Dr. 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 His TLC was 63% predicted on 06/10. His DLCO was 55% predicted on 06/10. After discussing with the case with her she also felt it was appropriate to also obtain hospice consult. He was on 3 L oxygen during the day and 2 bleed in. Patient is to have a CT angiogram of the chest today to assess his infiltrates. After reviewing this I will decide if we should attempt a course of steroids. Later in day had CTA scan of the chest and there was no pulmonary embolism.
--- NOTE | 2021-06-19 10:56 | PM.PNCARD ---
Progress Note: A&P Assessment and Plan (1) Atrial fibrillation: Qualifiers: Atrial fibrillation type: paroxysmal Qualified Code(s): I48.0 - Paroxysmal atrial fibrillation Code(s): I48.91 - Unspecified atrial fibrillation Status: Acute Assessment and Plan: He did convert back to sinus rhythm with low-dose metoprolol. Continue metoprolol but increase to 37.5 p.o. q.8 hours. Agree with anticoagulation as needed for treatment of his pulmonary embolism. Eventually he will need a more proper dose of treatment for atrial fibrillation prophylaxis also which should be 5 mg p.o. b.i.d.. Given recent probable atrial flutter with variable AV block less likely but possible atrial tachycardia. Patient tolerating well thus far. Sedation cardioversion would not be advised particularly given severe underlying lung disease and likelihood for respiratory compromise. Furthermore, given paroxysmal episodes of atrial flutter and atrial fibrillation unlikely patient with maintaining sinus rhythm even if successful cardioversion. Conservative medical management advised. This was discussed at great length the patient bedside who verbalized understanding and agreed with plan of care. Patient has overall very poor prognosis. (2) Pulmonary embolism on right: Code(s): I26.99 - Other pulmonary embolism without acute cor pulmonale Status: Acute Assessment and Plan: Small. On apixaban for a/c. Defer to pulmonology and primary service (3) Chronic interstitial lung disease: Code(s): J84.9 - Interstitial pulmonary disease, unspecified Status: Acute Assessment and Plan: Continue current therapy. Pulmonology following. (4) Acute and chronic respiratory failure with hypoxia: Code(s): J96.21 - Acute and chronic respiratory failure with hypoxia Status: Acute Assessment and Plan: Acute on chronic respiratory failure. Acute decompensation related to CHF, atrial fibrillation with rapid ventricular response/flutter, pulmonary embolism , and underlying interstitial lung disease. Patient clinically appears to be reasonably compensated from CHF perspective. -Transition back to po Lasix 40mg BID tomorrow. Continue oxygen, diuresis and nebulizers. Continue also treatment for his pulmonary embolism. BiPAP. 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 (7) Obstructive sleep apnea: Code(s): G47.33 - Obstructive sleep apnea (adult) (pediatric) Status: Acute Assessment and Plan: BiPAP. Subjective Date/time seen: Date of service: 06/19/21 10:56 Interval history: 86-year-old admitted for worsening shortness of breath and pulmonary embolism. Date of service 06/09/2021: He feels a little bit better but not significantly. Still on high-flow oxygen. No chest pain. No edema Date of service 06/10/2021: Feeling about the same. He is now on BiPAP. Denies any chest pain, palpitations. Date of service 06/11/2021: Back on high flow O2. States he feels better today, breathing is better but shortness of breath comes and goes. He did experience improvement in his shortness of breath after receiving IV furosemide this morning. Currently, breathing comfortably laying nearly flat. He does endorse SOB with minimal activity. Date of service 06/12/2021: Still on high-flow oxygen. Still short of breath at times. Still on IV diuretics. No chest pain Date of service 06/13/2021: Oxygen dependence has gone down slightly. He has reverted back to sinus rhythm. Not in chest
[2021-06-19] MEDS: FUROSEMIDE 40 MG TABLET PO (17:58)
[2021-06-19] MEDS: METOPROLOL TARTRATE 12.5 MG TABLET PO (17:58)
--- NOTE | 2021-06-19 18:45 | P.PNIM_ITS ---
Progress Note: A&P Assessment and Plan (1) Acute and chronic respiratory failure with hypoxia: Code(s): J96.21 - Acute and chronic respiratory failure with hypoxia Status: Acute Assessment and Plan: The patient has acute on chronic respiratory failure, typically on 2 L nasal cannula, currently on 8 L high-flow nasal cannula Chest CTA showed a small pulmonary embolism in the right lower lobe posterior segmental artery associated with pulmonary continue anticoagulation continue diuresis The chest reviewed pulmonary was consulted IV antibiotics is stopped now along with IV steroids as well Continue with IV diuresis as ordered Change to oral Lasix Chest x-ray 06/14/2021 unchanged BiPAP at night will change to home unit Choking episode 06/15/2021 with worsening hypoxia Increased oxygen requirement but remains stable. Continues to be on same oxygen requirement Started on Zosyn for coverage for aspiration pneumonia/pneumonitis CTA performed 06/18/2021 with no PE but diffuse lung disease. Previous pul transfer engineer noted signs of UIP. He has been started on Solu-Medrol by Pulmonary here to see any improvement. If none moving toward hospice has been contemplated (2) Pulmonary embolism on right: Code(s): I26.99 - Other pulmonary embolism without acute cor pulmonale Status: Acute Assessment and Plan: The patient has been taking Eliquis 5 mg once daily for several years. He does well with that drug and is able to afford it thus we will continue with Eliquis. He will be started on 10 mg twice daily and after 7 days he can go back to taking 5 mg though he will need to make sure he takes that twice a day. Will start him on 5 mg b.i.d. Eliquis. Continue on Eliquis 5 mg b.i.d. 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 Nebulizers available as needed as detailed above. Continue to monitor follow-up with pulmonology as outpatient. Once infectious etiology ruled out consideration of steroid Discussed with pulmonary 06/16/2021, 06/17/2021 (4) Obstructive sleep apnea: Code(s): G47.33 - Obstructive sleep apnea (adult) (pediatric) Status: Acute Assessment and Plan: Patient may use CPAP that he brought from home. switch to home unit (5) Congestive heart failure: Code(s): I50.9 - Heart failure, unspecified Status: Acute Assessment and Plan: Consult cardiology for further evaluation, appreciate assistance and recommendations echocardiogram reviewed: LVEF 55-60% with indeterminate diastolic function, right atrial chamber did dimension is severely enlarged and the left atrial chamber dimension is moderately enlarged. Systolic function is reduced. Patient also has elevated pulmonary pressures. Mild pulmonary hypertension Associated with pulmonary edema continue IV diuresis Change to oral diuresis now with worsening hypoxia switch to IV diuresis. IV diuresis on hold due to planned CT scan will resume from this evening (6) Atrial fibrillation: Qualifiers: Atrial fibrillation type: paroxysmal Qualified Code(s): I48.0 - Paroxysmal atrial fibrillation Code(s): I48.91 - Unspecified atrial fibrillation Status: Acute Assessment and Plan: He is currently rate controlled and tells me that he is not chronically in AFib , not on a beta-kayleigh Patient was initiated on metoprolol tartrate b.i.
[2021-06-20] VITALS (20 sets, daily range): BP systolic 119–140; BP diastolic 61–83; PULSE 47–95; RESP 17–24; TEMP 36.1–36.6; O2SAT 91–98
[2021-06-20 05:35] LABS: Blood Urea Nitrogen 37 mg/dL (9-20); Calcium 8.5 mg/dL (8.4-10.2); Carbon Dioxide > 40 mmol/L (22-30); Chloride 94 mmol/L (98-107); Estimated CRCL calculation 45 ml/min; Estimated Glomerular Filt Rate > 60; Glucose 169 mg/dL (65-110); Potassium 3.8 mmol/L (3.4-5.0); Sodium 138 mmol/L (137-145)
[2021-06-20 05:39] LABS: Hematocrit 35.4 % (42.0-52.0); Hemoglobin 11.3 g/dL (14.0-18.0); Mean Corpuscular HGB Conc 31.9 g/dl (32-36); Mean Corpuscular Hemoglobin 29.6 pg (26-34); Mean Corpuscular Volume 92.7 fl (80-100); Mean Platelet Volume 10.2 fl (7.4-10.4); Platelet Count Result 216 k/mm3 (150-375); Red Blood Count 3.82 M/mm3 (4.6-6.20); Red Cell Distribution Width 12.6 % (11.5-14.5); White Blood Count 13.5 K/mm3 (4.5-10.0)
[2021-06-20] MEDS: methylPREDNISolone SOD SUCC 40 MG VIAL IV PUSH (06:10)
--- NOTE | 2021-06-20 09:23 | P.PNPL_ITS ---
Progress Note: A&P Assessment and Plan (1) Chronic interstitial lung disease: Code(s): J84.9 - Interstitial pulmonary disease, unspecified Status: Acute Assessment and Plan: 06/15 Patient with a history of tractor trauma in 2008 as well as grain dust exposure throughout his life. He is a nonsmoker. CT scan shows diffuse interstitial alveolar infiltrates consistent with chronic hypersensitivity pneumonitis. Outside hospital CT report states that these infiltrates have progressed compared with 10/31/2019 I do not have any of these images to review. 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 per the family he was never given any trials of immunosuppressants or anti fibrotic agents. The family is aware of this diagnosis. Patient was previously on 2 L nasal cannula at home prior to this admission. I spoke to the daughter Laura she will try to bring us in prior images for review. There is no evidence of a bacterial viral infection currently I agree with no antibiotics. There is no evidence of bronchospasm at this time I will not give systemic steroids. There is no evidence of wheezing and I will not start bronchodilators. The patient remains hypoxemic and I suspect the main issue is progression of patient's chronic interstitial lung disease likely from grain dust inhalation and hypersensitivity pneumonitis ( I suspect PE and fluid overload are minor components). I will repeat CT of chest and will ultimately need outpatient PFTs to assess the severity of his disease. We will attempt to wean his oxygen as tolerated. The patient has required 6-10 L nasal cannula oxygen over the last 6 days and currently is on 8 L nasal cannula saturations 93%. I suspect that this is close to his new baseline. 06/16 yesterday the patient choked and had increased oxygen requirements up to 15 L high flow. Chest x-ray was performed which showed no change in is diffuse interstitial alveolar infiltrates. Zosyn was added and Lasix was changed from 40 p.o. b.i.d. to 40 IV b.i.d.. The patient was tried on his home BiPAP machine with 6 L bleed in but was hypoxemic. The patient tells me he is breathing fine today, states that hemoptysis may be slightly better and has no chest pain. Patient wore the home BiPAP last night 02/25 with 60% FiO2. Currently patient saturations are 94% on 15 L high-flow nasal cannula. Plan today will be to continue his Zosyn, repeat chest x-ray in the morning and plan for CT scan of the chest on 06/18 for comparison to scan on 06/12 to assess infiltrates after diuresis and check for pneumonia. 06/17 Patient is awake and alert in mild respiratory distress. Saturations are 92% on 15 L high flow nasal cannula. Afebrile, White blood cell count is 10.1, creatinine is 1.10. Chest x-ray with mild progression of diffuse interstitial alveolar infiltrates throughout both lungs. I will obtain a CT angiogram of the chest tomorrow morning to assess his PE and lung infiltrates. I spoke to his daughter Mariangel and plan to have a family meeting at 12:15 p.m. today to provide medical updates and formulate a plan that will work best for patient and family. 06/18 After speaking with his primary analytics architect Dr. 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 His TLC was 63% predicted on 06/10. His DLCO was 55% predicted on 06/10. After discussing with the case with her she also felt it was appropr iate to also obtain hospice consult. He was on 3 L oxygen during the day and 2 bleed in. Hi
[2021-06-20] MEDS: APIXABAN 5 MG TABLET BY MOUTH ×2 (09:40→20:21)
[2021-06-20] MEDS: METOPROLOL TARTRATE 25 MG TABLET PO ×2 (09:40→20:20)
[2021-06-20] MEDS: PANTOPRAZOLE 40 MG TABLET PO (09:40)
[2021-06-20] MEDS: FUROSEMIDE 40 MG TABLET PO ×2 (09:40→17:45)
[2021-06-20] MEDS: METOPROLOL TARTRATE 12.5 MG TABLET PO (09:41)
[2021-06-20] MEDS: predniSONE 20 MG TABLET 60 MG PO (11:01)
--- NOTE | 2021-06-20 12:05 | PM.PNCARD ---
Progress Note: A&P Assessment and Plan (1) Atrial fibrillation: Qualifiers: Atrial fibrillation type: paroxysmal Qualified Code(s): I48.0 - Paroxysmal atrial fibrillation Code(s): I48.91 - Unspecified atrial fibrillation Status: Acute Assessment and Plan: He did convert back to sinus rhythm with low-dose metoprolol. Given bradycardia will need to reduce to 25 mg b.i.d. as heart rate permits. Hold for heart rate less than 60 beats per minute. 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 Difficult management. Monitor tolerance. Agree with anticoagulation as needed for treatment of his pulmonary embolism. Eventually he will need a more proper dose of treatment for atrial fibrillation prophylaxis also which should be 5 mg p.o. b.i.d.. Given recent probable atrial flutter with variable AV block Patient tolerating well thus far. Sedation in general but particularly with cardioversion would not be advised particularly given severe underlying lung disease and likelihood for respiratory compromise. Recurrences of tachyarrhythmia expected given clinical circumstances. Conservative medical management advised. Patient has overall very poor prognosis from pulmonary perspective. (2) Pulmonary embolism on right: Code(s): I26.99 - Other pulmonary embolism without acute cor pulmonale Status: Acute Assessment and Plan: Small. On apixaban for a/c. Defer to pulmonology and primary service (3) Chronic interstitial lung disease: Code(s): J84.9 - Interstitial pulmonary disease, unspecified Status: Acute Assessment and Plan: Continue current therapy. Pulmonology following. (4) Acute and chronic respiratory failure with hypoxia: Code(s): J96.21 - Acute and chronic respiratory failure with hypoxia Status: Acute Assessment and Plan: Acute on chronic respiratory failure. Acute decompensation related to CHF, atrial fibrillation with rapid ventricular response/flutter, pulmonary embolism , and underlying interstitial lung disease. Patient clinically appears to be reasonably compensated from CHF perspective. -Lasix 40mg BID Continue oxygen, diuresis and nebulizers. Continue also treatment for his pulmonary embolism. BiPAP. (5) Hypertension: Qualifiers: Hypertension type: primary hypertension Qualified Code(s): I10 - Essential (primary) hypertension Code(s): I10 - Essential (primary) hypertension Status: Acute Assessment and Plan: Stable (6) Chronic anticoagulation: Code(s): Z79.01 - [facility]PC (current) use of anticoagulants Status: Acute Assessment and Plan: Anticoagulation with Eliquis for treatment of PE. (7) Obstructive sleep apnea: Code(s): G47.33 - Obstructive sleep apnea (adult) (pediatric) Status: Acute Assessment and Plan: BiPAP. Subjective Date/time seen: Date of service: 06/20/21 12:05 Interval history: 86-year-old admitted for worsening shortness of breath and pulmonary embolism. Date of service 06/09/2021: He feels a little bit better but not significantly. Still on high-flow oxygen. No chest pain. No edema Date of service 06/10/2021: Feeling about the same. He is now on BiPAP. Denies any chest pain, palpitations. Date of service 06/11/2021: Back on high flow O2. States he feels better today, breathing is better but shortness of breath comes and goes. He did experience improvement in his shortness of breath after receiving IV furosemide this morning. Currently, breathing comfortably laying nearly flat. He does endorse SOB with minimal activity. Date of service 06/12/2021: Still on high-flow oxygen. Still short of breath at times. Still on IV diuretics. No chest pain Date of service 06/13/2021: Oxygen dependence has gone down slightly. He has reverted back to sinus rhythm. Not in
--- NOTE | 2021-06-20 16:22 | PM.IMPN ---
Progress Note: A&P Assessment and Plan (1) Acute and chronic respiratory failure with hypoxia: Code(s): J96.21 - Acute and chronic respiratory failure with hypoxia Status: Acute Assessment and Plan: The patient has acute on chronic respiratory failure, typically on 2 L nasal cannula, currently on 8 L high-flow nasal cannula Chest CTA showed a small pulmonary embolism in the right lower lobe posterior segmental artery associated with pulmonary continue anticoagulation continue diuresis The chest reviewed pulmonary was consulted IV antibiotics is stopped now along with IV steroids as well Continue with IV diuresis as ordered Change to oral Lasix Chest x-ray 06/14/2021 unchanged BiPAP at night will change to home unit Choking episode 06/15/2021 with worsening hypoxia Increased oxygen requirement but remains stable. Continues to be on same oxygen requirement Started on Zosyn for coverage for aspiration pneumonia/pneumonitis CTA performed 06/18/2021 with no PE but diffuse lung disease. Previous operations section manager noted signs of UIP. He has been started on Solu-Medrol by Pulmonary here to see any improvement. If none moving toward hospice has been contemplated (2) Pulmonary embolism on right: Code(s): I26.99 - Other pulmonary embolism without acute cor pulmonale Status: Acute Assessment and Plan: The patient has been taking Eliquis 5 mg once daily for several years. He does well with that drug and is able to afford it thus we will continue with Eliquis. He will be started on 10 mg twice daily and after 7 days he can go back to taking 5 mg though he will need to make sure he takes that twice a day. Will start him on 5 mg b.i.d. Eliquis. Continue on Eliquis 5 mg b.i.d. 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 Nebulizers available as needed as detailed above. Continue to monitor follow-up with pulmonology as outpatient. Once infectious etiology ruled out consideration of steroid Discussed with pulmonary 06/16/2021, 06/17/2021 (4) Obstructive sleep apnea: Code(s): G47.33 - Obstructive sleep apnea (adult) (pediatric) Status: Acute Assessment and Plan: Patient may use CPAP that he brought from home. switch to home unit (5) Congestive heart failure: Code(s): I50.9 - Heart failure, unspecified Status: Acute Assessment and Plan: Consult cardiology for further evaluation, appreciate assistance and recommendations echocardiogram reviewed: LVEF 55-60% with indeterminate diastolic function, right atrial chamber did dimension is severely enlarged and the left atrial chamber dimension is moderately enlarged. Systolic function is reduced. Patient also has elevated pulmonary pressures. Mild pulmonary hypertension Associated with pulmonary edema continue IV diuresis Change to oral diuresis now with worsening hypoxia switch to IV diuresis. IV diuresis on hold due to planned CT scan will resume from this evening (6) Atrial fibrillation: Qualifiers: Atrial fibrillation type: paroxysmal Qualified Code(s): I48.0 - Paroxysmal atrial fibrillation Code(s): I48.91 - Unspecified atrial fibrillation Status: Acute Assessment and Plan: He is currently rate controlled and tells me that he is not chronically in AFib , not on a beta-kayleigh Patient was initiated on metoprolol tartrate b.i.d., continue with lisinopril and discontinue amlodipine Follow cardiology recommendation, appreciate assistance and recommendations Converted back to sinus rhythm Intermittently going to atrial tachycardia. Metoprolol dose increased to 25 mg Q 8 hour. Had a couple of nonsustained ventricular tachycardia 06/15/2021 Cardiology followi
[2021-06-21] VITALS (9 sets, daily range): BP systolic 128–140; BP diastolic 65–72; PULSE 45–58; RESP 12–26; TEMP 36.3–36.4; O2SAT 91–98
[2021-06-21 04:55] LABS: Hematocrit 34.8 % (42.0-52.0); Hemoglobin 11.5 g/dL (14.0-18.0); Mean Corpuscular Hemoglobin 30.2 pg (26-34); Mean Corpuscular Volume 91.3 fl (80-100); Mean Platelet Volume 9.8 fl (7.4-10.4); Platelet Count Result 210 k/mm3 (150-375); Red Blood Count 3.81 M/mm3 (4.6-6.20); Red Cell Distribution Width 12.6 % (11.5-14.5); White Blood Count 12.4 K/mm3 (4.5-10.0)
[2021-06-21 05:07] LABS: Anion Gap 5 mmol/L (8-16); Blood Urea Nitrogen 36 mg/dL (9-20); Calcium 7.8 mg/dL (8.4-10.2); Carbon Dioxide 39 mmol/L (22-30); Chloride 95 mmol/L (98-107); Estimated CRCL calculation 41 ml/min; Estimated Glomerular Filt Rate 58; Glucose 135 mg/dL (65-110); Potassium 3.4 mmol/L (3.4-5.0); Sodium 139 mmol/L (137-145)
--- NOTE | 2021-06-21 09:10 | PM.DS ---
DS: Admitting Diagnosis Discharge Date 06/21/2021 Admitting Diagnosis Acute on chronic respiratory failure and pulmonary embolism. DS: Discharge Diagnosis Discharge Diagnosis (1) Acute and chronic respiratory failure with hypoxia: Code(s): J96.21 - Acute and chronic respiratory failure with hypoxia Status: Acute Assessment and Plan: The patient has acute on chronic respiratory failure, typically on 2 L nasal cannula, currently on 8 L high-flow nasal cannula Chest CTA showed a small pulmonary embolism in the right lower lobe posterior segmental artery associated with pulmonary continue anticoagulation continue diuresis The chest reviewed pulmonary was consulted IV antibiotics is stopped now along with IV steroids as well Continue with IV diuresis as ordered Change to oral Lasix Chest x-ray 06/14/2021 unchanged BiPAP at night will change to home unit Choking episode 06/15/2021 with worsening hypoxia Increased oxygen requirement but remains stable. Continues to be on same oxygen requirement Started on Zosyn for coverage for aspiration pneumonia/pneumonitis CTA performed 06/18/2021 with no PE but diffuse lung disease. Previous leather belt shaper noted signs of UIP. He has been started on Solu-Medrol by Pulmonary here to see any improvement. If none moving toward hospice has been contemplated (2) Pulmonary embolism on right: Code(s): I26.99 - Other pulmonary embolism without acute cor pulmonale Status: Acute Assessment and Plan: The patient has been taking Eliquis 5 mg once daily for several years. He does well with that drug and is able to afford it thus we will continue with Eliquis. He will be started on 10 mg twice daily and after 7 days he can go back to taking 5 mg though he will need to make sure he takes that twice a day. Will start him on 5 mg b.i.d. Eliquis. Continue on Eliquis 5 mg b.i.d. 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 Nebulizers available as needed as detailed above. Continue to monitor follow-up with pulmonology as outpatient. Once infectious etiology ruled out consideration of steroid Discussed with pulmonary 06/16/2021, 06/17/2021 (4) Obstructive sleep apnea: Code(s): G47.33 - Obstructive sleep apnea (adult) (pediatric) Status: Acute Assessment and Plan: Patient may use CPAP that he brought from home. switch to home unit (5) Congestive heart failure: Code(s): I50.9 - Heart failure, unspecified Status: Acute Assessment and Plan: Consult cardiology for further evaluation, appreciate assistance and recommendations echocardiogram reviewed: LVEF 55-60% with indeterminate diastolic function, right atrial chamber did dimension is severely enlarged and the left atrial chamber dimension is moderately enlarged. Systolic function is reduced. Patient also has elevated pulmonary pressures. Mild pulmonary hypertension Associated with pulmonary edema continue IV diuresis Change to oral diuresis now with worsening hypoxia switch to IV diuresis. IV diuresis on hold due to planned CT scan will resume from this evening (6) Atrial fibrillation: Qualifiers: Atrial fibrillation type: paroxysmal Qualified Code(s): I48.0 - Paroxysmal atrial fibrillation Code(s): I48.91 - Unspecified atrial fibrillation Status: Acute Assessment and Plan: He is currently rate controlled and tells me that he is not chronically in AFib , not on a beta-kayleigh Patient was initiated on metoprolol tartrate b.i.d., continue with lisinopril and discontinue amlodipine Follow cardiology recommendation, appreciate assistance and recommendations Converted back to sinus rhythm Intermittently going to atrial
[2021-06-21] MEDS: PANTOPRAZOLE 40 MG TABLET PO (09:36)
[2021-06-21] MEDS: APIXABAN 5 MG TABLET BY MOUTH (09:36)
[2021-06-21] MEDS: FUROSEMIDE 40 MG TABLET PO (09:36)
[2021-06-21] MEDS: predniSONE 20 MG TABLET 60 MG PO (09:36)
--- NOTE | 2021-06-21 13:00 | PCNFU ---
Nutrition Follow-Up Complete: Pt current nutrition is heart healthy diet Last recorded weight is 78.8 kg, stable. Bowel Motility: No new BM reported. Labs Reviewed: Hgb 11.5, Hct 34.8, Ca 7.8, Cl 95, CO2 39, GFR 58, BUN 36, Mg 2.5, Glu 135 Meds Noted: Eliquis, Lasix, Protonix, Prednison Skin: left face scab Additional Notes: Current nutrition is a heart healthy diet with reported intake of 75% x3 and 100% x2. Agree with diet orders at this time. Pt appears to be tolerating diet orders with adequate intake. Per EMR, pt is to discharge home with Hospice. No further nutritional needs. No further nutritional interventions. Will follow up in 7 days if pt is not discharged home with hospice.
--- NOTE | 2021-06-21 13:48 | PM.PNCARD ---
Progress Note: A&P Assessment and Plan (1) Atrial fibrillation: Qualifiers: Atrial fibrillation type: paroxysmal Qualified Code(s): I48.0 - Paroxysmal atrial fibrillation Code(s): I48.91 - Unspecified atrial fibrillation Status: Acute Assessment and Plan: He did convert back to sinus rhythm with low-dose metoprolol. Continue metoprolol 25 mg b.i.d. as heart rate permits. Agree with anticoagulation as needed for treatment of his pulmonary embolism. Eventually he will need a more proper dose of treatment for atrial fibrillation prophylaxis also which should be 5 mg p.o. b.i.d.. Informed after my visit with the patient by Dr. Valencia patient will be discharged home on hospice. This is appropriate. Will sign off. No follow-up will be set given the circumstances. (2) Pulmonary embolism on right: Code(s): I26.99 - Other pulmonary embolism without acute cor pulmonale Status: Acute Assessment and Plan: Small. On apixaban for a/c. Defer to pulmonology and primary service (3) Chronic interstitial lung disease: Code(s): J84.9 - Interstitial pulmonary disease, unspecified Status: Acute Assessment and Plan: Continue current therapy. Pulmonology following. (4) Acute and chronic respiratory failure with hypoxia: Code(s): J96.21 - Acute and chronic respiratory failure with hypoxia Status: Acute Assessment and Plan: Acute on chronic respiratory failure. Acute decompensation related to CHF, atrial fibrillation with rapid ventricular response/flutter, pulmonary embolism , and underlying interstitial lung disease. Patient clinically appears to be reasonably compensated from CHF perspective. -Lasix 40mg BID Continue oxygen, diuresis and nebulizers. Continue also treatment for his pulmonary embolism. BiPAP. 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 (7) Obstructive sleep apnea: Code(s): G47.33 - Obstructive sleep apnea (adult) (pediatric) Status: Acute Assessment and Plan: BiPAP. Additional Plan 86-year-old man with: Relatively severe chronic interstitial lung disease that appears to be progressing. He has paroxysmal atrial fibrillation in this setting and currently is maintaining sinus rhythm with beta-kayleigh treatment. No changes to suggest today. Obviously long-term prognosis is limited given his advanced age and advancing lung disease. Ezequiel Kowalski MD [facility] Subjective Date/time seen: Date of service: 06/21/21 13:48 Interval history: 86-year-old admitted for worsening shortness of breath and pulmonary embolism paroxysmal atrial flutter. Date of service 06/09/2021: He feels a little bit better but not significantly. Still on high-flow oxygen. No chest pain. No edema Date of service 06/10/2021: Feeling about the same. He is now on BiPAP. Denies any chest pain, palpitations. Date of service 06/11/2021: Back on high flow O2. States he feels better today, breathing is better but shortness of breath comes and goes. He did experience improvement in his shortness of breath after receiving IV furosemide this morning. Currently, breathing comfortably laying nearly flat. He does endorse SOB with minimal activity. Date of service 06/12/2021: Still on high-flow oxygen. Still short of breath at times. Still on IV diuretics. No chest pain Date of service 06/13/2021: Oxygen dependence has gone down slightly. He has reverted back to sinus rhythm. Not in chest pain. Still short of breath especially with doin
== END 2021-06-21 14:54 | disposition hospice, home (50) | DRG 175 ==
LOC: ANHIMU 06-13 08:58 → ANH2MED 06-13 17:53 → ANHIMU 06-15 19:00
PROVIDERS: Internal Medicine; Internal Medicine Pulmonary Disease; Nurse Practitioner; Nurse Practitioner Family; Physician Assistant; Admitting Provider Family Medicine; Visit Provider Internal Medicine
DX: I26.99 Other pulmonary embolism without acute cor pulmonale (principal); J96.21 Acute and chronic respiratory failure with hypoxia; J84.9 Interstitial pulmonary disease, unspecified; R04.2 Hemoptysis; I48.92 Unspecified atrial flutter; I11.0 Hypertensive heart disease with heart failure; I50.9 Heart failure, unspecified; G47.33 Obstructive sleep apnea (adult) (pediatric); T75.89XA Other specified effects of external causes, initial encounter; I44.30 Unspecified atrioventricular block; I48.0 Paroxysmal atrial fibrillation; Z66 Do not resuscitate; F43.10 Post-traumatic stress disorder, unspecified; M19.90 Unspecified osteoarthritis, unspecified site; Z79.01 Long term (current) use of anticoagulants; Z99.81 Dependence on supplemental oxygen; Z85.820 Personal history of malignant melanoma of skin; Z90.49 Acquired absence of other specified parts of digestive tract; Z98.42 Cataract extraction status, left eye; Z98.41 Cataract extraction status, right eye; Z91.14 Patient's other noncompliance with medication regimen
CPT/HCPCS: 36415; 71045; 71250; 71275; 80048; 80053; 80076; 83735; 83880; 84443; 84484; 85025; 85027; 85610; 85730; 87040; 87070; 87205; 92610; 93005; 93306; 93970; 94002; 94003; 94640; 94762; 96375; 97110; 97116; 97161; 97166; 97530; 97535; A9270; J0696; J1940; J2543; J2920; J7512; Q9967